=== PATIENT | male | born 1970 ===

== ENCOUNTER 2021-07-22 18:44 | Emergency (ER) | payer OTHER, SELFPAY ==
[2021-07-22 18:59] VITALS: BP 152/80; PULSE 92; RESP 20; TEMP 36.9; O2SAT 97; BMI 33.3
--- NOTE | 2021-07-22 21:25 | W.ED.BACK ---
HPI - Back Pain/Injury General: Chief Complaint: Back Pain/Injury Stated Complaint: Back Pain Time Seen by Provider: 07/22/21 21:25 History of Present Illness: A 50-year-old male patient comes in today with complaints of pain to the right lower back. Patient turned over in bed 5 days ago and felt something pull in his back and since then has had pain and discomfort with difficulty sleeping. Patient is new to the area for the last 3 weeks after moving from [place]. Patient appears in moderate pain. Patient appears nontoxic. Patient reports some difficulty getting breath as it aggravates the pain. MD elicited complaint: back pain Onset (ago): day(s) Exacerbating factors: movement Relieving factors: none Associated symptoms: Deny fever(s) Review of Systems General: Reports: 10 or more systems reviewed and unremarkable except in HPI and below Const: Denies: fever(s) Card: Denies: chest pain Resp: Reports: dyspnea Musc: Reports: back pain Physical Exam Const: COMMON NORMALS: alert HENMT: COMMON NORMALS: normocephalic HEAD & SCALP: normocephalic MOUTH: Normal oral and palatal mucosa present Neck/C-Spine: COMMON NORMALS: full ROM Chest: CHEST: Yes tenderness (Bilateral posterior chest wall pain) Resp: COMMON NORMALS: normal respiratory effort and clear to auscultation bilaterally AUSCULTATION: clear to auscultation bilaterally Cardio: COMMON NORMALS: regular rate and regular rhythm RATE: regular rate RHYTHM: regular rhythm Back/Pelvis: THORACIC SPINE/UPPER BACK: No thoracic spinal tenderness LUMBAR SPINE/LOWER BACK: No lumbar spinal tenderness, Yes paraspinal muscle tenderness and Yes straight leg raise negative bilaterally Extremity: COMMON NORMALS: normal to inspection Neuro: SENSORIUM/ORIENTATION: Yes alert Course Vital Signs: Vital signs: Vital Signs Temperature 98.4 F 07/22/21 18:59 Pulse Rate 92 07/22/21 18:59 Respiratory Rate 20 H 07/22/21 18:59 Blood Pressure 152/80 07/22/21 18:59 Pulse Oximetry 97 07/22/21 18:59 MDM - Back Pain/Injury Medical Decision Making Patient comes in today for complaints of right-sided low back pain with muscle spasms. Patient reports he has difficulty taking a deep breath due to muscle spasms. Patient is alert and oriented. On exam patient has tenderness in the right lower back in the paraspinous muscle. Lungs are clear to auscultation. Heart rates regular. Blood pressure slightly elevated at 152. Differential diagnosis includes but not limited to costochondritis, lumbar strain, intervertebral disc disease, facet arthropathy, ACS. EKG showed a sinus rhythm without any ectopy or ST elevation. Chest x-ray was unremarkable. Patient was given a dose of dexamethasone for pain and inflammation. Patient was also written a prescription for hydrocodone for 3 days to help with pain and discomfort. EKG Data EKG 1: EKG interpretation date: 07/22/21 EKG interpretation time: 22:05 Interpretation: EKG shows regular rhythm at [address] elevation or ectopy was noted. No prior exam was available for comparison. Discharge Plan Discharge Patient Disposition: Home Clinical Impression: Strain of lumbar region Qualifiers: Encounter type: initial encounter Qualified Code(s): S39.012A - Strain of muscle, fascia and tendon of lower back, initial encounter Condition: Stable Prescriptions: New ibuprofen 600 mg tablet 600 mg PO Q6H PRN (Reason: pain) Qty: 60 0RF hydrocodone-acetaminophen 5-325 mg tablet 1 tab PO Q8H PRN (Reason: pain (scale score 7-10)) Qty: 10 0RF Discharge Orders: Discharge ED (Routine); Ordered 07/22/21 Ordered By: Myron Barron Discharge Diet: Usual diet Discharge Activity: Increase activity as tolerated Patient Instructions: Back Pain (ED), Opioid Safety Activity Restrictions/Additional Instructions: Activity as tolerated. Gentle stretching and range of motion exercises. Drink plenty of water. Use acetaminophen and ibuprofen to control pain. Use hydrocodone for severe pain. Follow-up with primary care for further instruction. Return to ER for new concerns. Coding Level of Care Code ED [facility] for Chg Fwd Exam Comprehensive
--- NOTE | 2021-07-22 21:38 | XR_ITS ---
WS: [id number] Exam: XR chest 1V portable [id number] Date/Time of Exam: 07/22/2021 9:38 PM Reason For Exam: dyspnea No priors. Findings: The lungs are clear and fully expanded. Costophrenic angles are sharp. No infiltrates. Bronchovascula r relief appears normal. Cardiac silhouette is unremarkable. Bony elements are intact. XR/XR chest 1V portable [id number] IMPRESSION: Unremarkable chest radiograph.
--- NOTE | 2021-07-22 21:38 | ECG_ITS ---
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 Measurements Intervals [place] Rate: 76 P: 44 NV: 174 QRS: 26 QRSD: 94 T: 67 QT: 368 QTc: 414 Interpretive Statements SINUS RHYTHM LOW QRS VOLTAGE IN EXTREMITY LEADS [QRS DEFLECTION < 0.5 mV IN LIMB LEADS] No previous ECG available for comparison Electronically Signed On 07-22-2021 22:01:04 CDT by Lopez Bustamante M.D. [id number]
[2021-07-22] MEDS: HYDROcodone-acetaminophen 7.5-325 mg Tablet 1 TAB PO (21:52)
[2021-07-22] MEDS: dexamethasone 10 mg/mL INJ IM (21:52)
[2021-07-22 22:07] VITALS: BP 143/81; PULSE 78; RESP 18; TEMP 36.8; O2SAT 94
== END 2021-07-22 22:09 | disposition home or self-care (01) ==
PROVIDERS: Emergency Provider Nurse Practitioner Family
DX: S39.012A Strain of muscle, fascia and tendon of lower back, initial encounter (principal); X50.1XXA Overexertion from prolonged static or awkward postures, initial encounter
CPT/HCPCS: 71045; 93005; 96372; 99283; J1100

== ENCOUNTER 2021-07-23 02:52 | Emergency (ER) | payer OTHER, SELFPAY ==
[2021-07-23 02:59] VITALS: BMI 32.5
--- NOTE | 2021-07-23 03:12 | CTR_ITS ---
PROCEDURE INFORMATION: Exam: CT Abdomen And Pelvis With Contrast Exam date and time: 07/23/2021 3:45 AM Age: 50 years old Clinical indication: Abdominal pain; Generalized; Prior surgery; Surgery date: 6+ months; Surgery type: Hernia; Additional info: Abd pain TECHNIQUE: Imaging protocol: Computed tomography of the abdomen and pelvis with contrast. Radiation optimization: All CT scans at this facility use at least one of these dose optimization techniques: automated exposure control; mA and/or kV adjustment per patient size (includes targeted exams where dose is matched to clinical indication); or iterative reconstruction. Contrast material: OMNI 300; Contrast volume: 95 ml; Contrast route: INTRAVENOUS (IV); COMPARISON: CR XR chest 1V portable [id number] 07/22/2021 9:44 PM RADIATION DOSE METRICS: Total DLP (mGy-cm): 1892.9 FINDINGS: Lungs: Right discoid atelectasis and/or scarring. Liver: Normal. No mass. Gallbladder and bile ducts: Normal. No calcified stones. No ductal dilation. Pancreas: Normal. No ductal dilation. Spleen: Normal. No splenomegaly. Adrenal glands: Normal. No mass. Kidneys and ureters: Normal. No hydronephrosis. Stomach and bowel: Anastomosis in the rectum most consistent with previous partial resection. Appendix: Normal appendix. Intraperitoneal space: Unremarkable. No free air. No significant fluid collection. Vasculature: Unremarkable. No abdominal aortic aneurysm. Lymph nodes: Unremarkable. No enlarged lymph nodes. Urinary bladder: Unremarkable as visualized. Reproductive: Unremarkable as visualized. Bones/joints: Unremarkable. No acute fracture. Soft tissues: Supraumbilical anterior abdominal hernia containing large loop of transverse colon. Right paraumbilical hernia containing several loops of small bowel. 4 cm dilated loop of small bowel sticking out of the right paraumbilical hernia back into the peritoneal cavity suggesting partial obstruction from right paraumbilical herniation. Axial series 2, images 47-58. Left paraumbilical hernia containing a loop of small bowel. CT/CT abdomen pelvis w con* [id number] IMPRESSION: 1. Supraumbilical anterior abdominal hernia containing large loop of transverse colon. 2. Right paraumbilical hernia containing several loops of small bowel. 3. 4 cm dilated loop of small bowel sticking out of the right paraumbilical hernia back into the peritoneal cavity suggesting partial obstruction from right paraumbilical herniation. Axial series 2, images 47-58. 4. Left paraumbilical hernia containing a loop of small bowel.
[2021-07-23 03:13] LABS: Basophils # 0.1 10^3/uL (0.0-0.1); Basophils % 0.5 %; Eosinophils % 0.2 %; Hemoglobin 16.7 g/dL (11.7-16.6); Lymphocytes % 8.7 %; Mean Corpuscular HGB Conc 34.1 g/dL (30.0-36.0); Mean Corpuscular Hemoglobin 30.9 pg (28.0-34.0); Mean Corpuscular Volume 90.6 fl (80-94); Mean Platelet Volume 9.4 fL (7.4-10.4); Monocytes # 0.2 10^3/uL (0.2-0.9); Monocytes % 1.3 %; Neutrophils # 9.93 10^3/uL (1.8-7.7); Neutrophils % 87.7 %; Nucleated Red Blood Cells % 0 %; Platelet Count 279 10^3/cmm (130-400); Red Blood Count 5.41 10^6/uL (4.1-5.3); Red Cell Distribution Width 13.1 % (12.1-15.1); White Blood Count 11.3 10^3/uL (4.0-10.0)
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
[2021-07-23] MEDS: sodium chloride 0.9% 1,000 ML 999 ML IV (03:16)
[2021-07-23 03:17] VITALS: RESP 25
[2021-07-23] MEDS: ondansetron 2 mg/ML SDV 2 mL 4 MG IVP (03:17)
[2021-07-23] MEDS: HYDROmorphone 1 mg/mL INJ 1 mL IVP (03:17)
[2021-07-23 03:34] LABS: Alanine Aminotransferase 48 U/L (0-41); Albumin Level 4.6 g/dL (3.5-5.2); Alkaline Phosphatase 112 IU/L (40-130); Aspartate Amino Transferase 28 U/L (0-40); Blood Urea Nitrogen 14 mg/dL (6-20); Calcium 9.6 mg/dL (8.5-10.5); Carbon Dioxide 21 mmol/L (22-29); Chloride 103 mmol/L (98-107); Globulin 3.1 g/dL (1.3-4.6); Glomerular Filtration Rate 89.3 mL/min (90-130); Glucose 157 mg/dL (65-115); Lipase 6 U/L (13-60); Osmolality Calculated 290 mOsm/kg (285-295); Sodium 138 mmol/L (136-145); Total Bilirubin 0.4 mg/dL (0.15-1.2); Total Protein 7.7 g/dL (6.6-8.7)
[2021-07-23] MEDS: iohexol 300 mg/mL 100 mL Btl IV (03:44)
[2021-07-23 04:29] VITALS: RESP 24
[2021-07-23] MEDS: morphine 4 mg/mL SDV 1 mL IVP (04:29)
[2021-07-23 04:33] VITALS: BP 118/61; PULSE 100; RESP 24; O2SAT 97
--- NOTE | 2021-07-23 10:19 | DCPLANNER ---
Addendum entered by Gisel Santamaria 08/15/21 07:34: Patient had a follow up appointment with general surgery - patient did attend appointment. Addendum entered by Gisel Santamaria 07/23/21 15:46: Patient has a follow up appointment scheduled for Monday, August 02, 2021 at 10:[address] Winchester at General Surgery. Clinic will call patient with appointment information. Original Note: recruiting manager had message to schedule a follow up appointment for patient with general surgery. recruiting manager sent patients information to general surgery front staff thru [employer] task / message system. Patients information will be printed and reviewed. Clinic will call patient with appointment information. recruiting manager called phone number [phone], to inform patient that he was referred to general surgery and that the clinic will be calling patient with appointment information. recruiting manager was unable to speak with patient at this time, a voicemail was left for patient to return pillowcase sewer phone call.
== END 2021-07-23 04:58 | disposition home or self-care (01) ==
PROVIDERS: Emergency Provider Emergency Medicine
DX: K42.9 Umbilical hernia without obstruction or gangrene (principal); G89.29 Other chronic pain; M54.9 Dorsalgia, unspecified; R10.84 Generalized abdominal pain; Z79.891 Long term (current) use of opiate analgesic
CPT/HCPCS: 74177; 80053; 83690; 85025; 96361; 96374; 96375; 99284; J1170; J2270; J2405; J7030; Q9967

== ENCOUNTER 2021-08-10 13:10 | Emergency (ER) | payer OTHER, SELFPAY ==
[2021-08-10] VITALS (9 sets, daily range): BP systolic 126–150; BP diastolic 67–93; PULSE 78–95; RESP 15–20; TEMP 36.7; O2SAT 94–98; BMI 30.9
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
[2021-08-10] MEDS: morphine 4 mg/mL SDV 1 mL IVP ×2 (14:41→16:11)
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
[2021-08-10] MEDS: ondansetron 2 mg/ML SDV 2 mL 4 MG IVP (14:47)
[2021-08-10] MEDS: sodium chloride 0.9% 1,000 ML 999 ML IV (14:50)
[2021-08-10 15:16] LABS: Basophils # 0.1 10^3/uL (0.0-0.1); Basophils % 0.7 %; Eosinophils # 0.2 10^3/uL (0.0-0.8); Hematocrit 51.4 % (42.0-52.0); Hemoglobin 17.2 g/dL (11.7-16.6); Lymphocytes # 0.9 10^3/uL (0.8-4.8); Lymphocytes % 12.2 %; Mean Corpuscular HGB Conc 33.5 g/dL (30.0-36.0); Mean Corpuscular Hemoglobin 31.4 pg (28.0-34.0); Mean Corpuscular Volume 93.8 fl (80-94); Mean Platelet Volume 9.4 fL (7.4-10.4); Monocytes # 0.5 10^3/uL (0.2-0.9); Monocytes % 6.6 %; Neutrophils # 5.93 10^3/uL (1.8-7.7); Neutrophils % 77.8 %; Nucleated Red Blood Cells % 0 %; Platelet Count 313 10^3/cmm (130-400); Red Blood Count 5.48 10^6/uL (4.1-5.3); White Blood Count 7.6 10^3/uL (4.0-10.0)
[2021-08-10] MEDS: iohexol 300 mg/mL 100 mL Btl IV (15:27)
[2021-08-10 15:28] LABS: Lactate (Lactic Acid level) 1.7 mmol/L (0.5-2.2)
[2021-08-10 15:29] LABS: Alanine Aminotransferase 47 U/L (0-41); Albumin Level 4.7 g/dL (3.5-5.2); Alkaline Phosphatase 133 IU/L (40-130); Aspartate Amino Transferase 28 U/L (0-40); Blood Urea Nitrogen 8 mg/dL (6-20); Calcium 8.8 mg/dL (8.5-10.5); Carbon Dioxide 26 mmol/L (22-29); Chloride 100 mmol/L (98-107); Globulin 3.2 g/dL (1.3-4.6); Glomerular Filtration Rate 102.3 mL/min (90-130); Glucose 97 mg/dL (65-115); Lipase 5 U/L (13-60); Osmolality Calculated 280 mOsm/kg (285-295); Sodium 136 mmol/L (136-145); Total Bilirubin 0.3 mg/dL (0.15-1.2); Total Protein 7.9 g/dL (6.6-8.7)
[2021-08-10 16:19] LABS: Add Urine Microscopic? NO; Charge for UA Resulting for Rev
[2021-08-10 16:24] LABS: Bilirubin Urine Neg (Negative); Blood Urine Neg (Negative); Glucose Urine UA Norm (Normal); Ketones Urine Negative (Negative); Leukocyte Esterase Urine Negative (Negative); Nitrate Urine Negative (Negative); Protein Urine Neg (Negative); Sulfosalicylic Acid Urine Negative (Negative); Urine Appearance Clear (CLEAR); Urine Color Yellow (Yellow); Urobilinogen Urine Norm (Negative); pH Urine 8 (5-7)
[2021-08-10] MEDS: morphine 4 mg/mL SDV 1 mL 2 MG IVP (17:26)
[2021-08-10] MEDS: oxyCODONE-APAP 5-325 mg Tablet 1 TAB PO (19:28)
--- NOTE | 2021-08-10 19:29 | PC.NURSE ---
pt given percocet for home use
== END 2021-08-10 19:38 | disposition home or self-care (01) ==
PROVIDERS: Emergency Provider Emergency Medicine
DX: K43.9 Ventral hernia without obstruction or gangrene (principal)
CPT/HCPCS: 74177; 80053; 81003; 83605; 83690; 85025; 96361; 96374; 96375; 96376; 99284; J2270; J2405; J7030; Q9967

== ENCOUNTER 2021-08-12 00:15 | Emergency (ER) | payer OTHER, SELFPAY ==
[2021-08-12 00:42] VITALS: BP 118/75; PULSE 96; RESP 20; TEMP 36.8; O2SAT 98; BMI 29.9
[2021-08-12 01:29] LABS: Basophils % 0.5 %; Eosinophils # 0.2 10^3/uL (0.0-0.8); Eosinophils % 3.8 %; Hematocrit 46.2 % (42.0-52.0); Hemoglobin 15.4 g/dL (11.7-16.6); Lymphocytes # 1.4 10^3/uL (0.8-4.8); Lymphocytes % 22.2 %; Mean Corpuscular HGB Conc 33.3 g/dL (30.0-36.0); Mean Platelet Volume 9.4 fL (7.4-10.4); Monocytes # 0.5 10^3/uL (0.2-0.9); Monocytes % 8.5 %; Neutrophils # 3.95 10^3/uL (1.8-7.7); Neutrophils % 64.3 %; Nucleated Red Blood Cells % 0 %; Platelet Count 286 10^3/cmm (130-400); Red Blood Count 4.97 10^6/uL (4.1-5.3); Red Cell Distribution Width 12.8 % (12.1-15.1); White Blood Count 6.1 10^3/uL (4.0-10.0)
[2021-08-12 01:58] LABS: Alanine Aminotransferase 31 U/L (0-41); Albumin Level 3.8 g/dL (3.5-5.2); Alkaline Phosphatase 128 IU/L (40-130); Aspartate Amino Transferase 17 U/L (0-40); Blood Urea Nitrogen 14 mg/dL (6-20); Calcium 9.1 mg/dL (8.5-10.5); Carbon Dioxide 23 mmol/L (22-29); Chloride 106 mmol/L (98-107); Globulin 3.6 g/dL (1.3-4.6); Glomerular Filtration Rate 119.4 mL/min (90-130); Glucose 118 mg/dL (65-115); Lipase 6 U/L (13-60); Osmolality Calculated 290 mOsm/kg (285-295); Sodium 139 mmol/L (136-145); Total Bilirubin 0.2 mg/dL (0.15-1.2); Total Protein 7.4 g/dL (6.6-8.7)
[2021-08-12 03:04] LABS: Add Urine Microscopic? YES; Bilirubin Urine Neg (Negative); Blood Urine Trace (Negative); Glucose Urine UA Norm (Normal); Ketones Urine Negative (Negative); Leukocyte Esterase Urine Negative (Negative); Nitrate Urine Negative (Negative); Protein Urine Neg (Negative); Urine Appearance Clear (CLEAR); Urine Color Yellow (Yellow); Urobilinogen Urine Norm (Negative); pH Urine 6 (5-7)
[2021-08-12 03:08] LABS: Add Urine Culture? No; Bacteria Urine TRACE /hpf; RBC Urine 0-4 /hpf (0-2); Squamous Epithelial Cell Urine 0-4 /hpf (0-5); WBC Urine 0-4 /hpf (0-5)
--- NOTE | 2021-08-12 03:34 | W.ED.ABDPA2 ---
HPI - Abdominal Pain General: Chief Complaint: Abdominal Pain Stated Complaint: abd pain Time Seen by Provider: 08/12/21 00:16 Source: patient Mode of arrival: ambulatory Limitations: no limitations History of Present Illness: 50-year-old male has a history of multiple abdominal surgeries and chronic abdominal pain. He has been seen in the ER multiple times for his abdominal pain. He was seen here yesterday had CT scan he has appointment with surgery today. He states that tonight his pain is worsened he states is currently 6 out of 10 denies any fever no vomiting no diarrhea. Associated Symptoms: Denies chills, dysuria and fever(s) Review of Systems Const: Denies: fever(s), chills, body aches or change in appetite Eyes: Denies: blurry vision or eye discomfort ENMT: Denies: throat pain or dental pain Card: Denies: chest pain Resp: Denies: dyspnea GI: Reports: abdominal pain : Denies: dysuria Musc: Denies: neck pain or back pain Skin/Breast: Denies: rash Neuro: Denies: headache(s) Psych: Denies: depression Apolinar/Lymph: Denies: easy bruising All/Imm: Denies: urticaria PFSH ED PFSH: Medical History Hernia of abdominal wall Strain of lumbar region Family History Denies family history of Cancer Social History Smoking and tobacco status: never smoked Alcohol intake: never Physical Exam Const: COMMON NORMALS: no acute distress, patient oriented x3 and healthy appearing HENMT: COMMON NORMALS: normocephalic and atraumatic HEAD & SCALP: normocephalic and atraumatic Eye: COMMON NORMALS: Equal, round and reactive pupils present and EOMs intact bilaterally PUPIL: Yes Equal, round and reactive pupils present Neck/C-Spine: COMMON NORMALS: full ROM and supple Chest: COMMONS NORMALS: normal inspection of the chest and normal palpation of entire chest wall Resp: COMMON NORMALS: normal respiratory effort, No retractions, No use of accessory muscles and clear to auscultation bilaterally AUSCULTATION: clear to auscultation bilaterally Cardio: COMMON NORMALS: regular rate, regular rhythm and No murmurs present (Cardio) RATE: regular rate RHYTHM: regular rhythm GI: COMMON NORMALS: Soft to palpation PALPATION: Yes Soft to palpation OTHER: Multiple abdominal hernias minimal tenderness easily reduced at this time Extremity: COMMON NORMALS: normal to inspection and full ROM Neuro: COMMON NORMALS: patient oriented x3, moves all extremities and no focal motor deficits Psych: COMMON NORMALS: mental status grossly normal, Normal thought process present and cooperative THOUGHT PROCESS: Normal thought process present Skin: COMMON NORMALS: no rashes or lesions noted and no wounds GENERAL SKIN EXAM: no rashes or lesions noted Course Vital Signs: Vital signs: Vital Signs Temperature 98.2 F 08/12/21 00:42 Pulse Rate 96 08/12/21 00:42 Respiratory Rate 20 H 08/12/21 00:42 Blood Pressure 118/75 08/12/21 00:42 Pulse Oximetry 98 08/12/21 00:42 MDM - Abdominal Pain Medical Decision Making Patient presents with chronic abdominal pain abdominal exam does reveal large hernias but they are easily reduced with no signs of strangulation at this time his white count here is normal he was seen here yesterday as well he has an appointment with the surgeon in roughly 12 hours felt patient is stable for discharge at this time he is no signs of acute surgical emergency he is to follow-up as scheduled with surgery return if worsening he understands agrees to plan. Lab Data : 08/12/21 01:20 08/12/21 01:20 Labs/Radiology: Laboratory Results WBC 6.1 10^3/uL (4.0-10.0) 08/12/21 01:20 RBC 4.97 10^6/uL (4.1-5.3) 08/12/21 01:20 Hgb 15.4 g/dL (11.7-16.6) 08/12/21 01:20 Hct 46.2 % (42.0-52.0) 08/12/21 01:20 MCV 93.0 fl (80-94) 08/12/21 01:20 MCH 31.0 pg (28.0-34.0) 08/12/21 01:20 MCHC 33.3 g/dL (30.0-36.0) 08/12/21 01:20 RDW 12.8 % (12.1-15.1) 08/12/21 01:20 Plt Count 286 10^3/cmm (130-400) 08/12/21 01:20 MPV 9.4 fL (7.4-10.4) 08/12/21 01:20 Neut % (Auto) 64.3 % 08/12/21 01:20 Lymph % (Auto) 22.2 % 08/12/21 01:20 [place] % (Auto) 8.5 % 08/12/21 01:20 Eos % (Auto) 3.8 % 08/12/21 01:20 Baso % (Auto) 0.5 % 08/12/21 01:20 Neut # (Auto) 3.95 10^3/uL (1.8-7.7) 08/12/21 01:20 Lymph # (Auto) 1.4 10^3/uL (0.8-4.8) 08/12/21 01:20 [place] # (Auto) 0.5 10^3/uL (0.2-0.9) 08/12/21 01:20 Eos # (Auto) 0.2 10^3/uL (0.0-0.8) 08/12/21 01:20 Baso # (Auto) 0.0 10^3/uL (0.0-0.1) 08/12/21 01:20 Nucleated RBC % (auto) 0 % 08/12/21 01:20 Nucleated RBCs # 0.0 /100WBC 08/12/21 01:20 Sodium 139 mmol/L (136-145) 08/12/21 01:20 Potassium 4.0 mmol/L (3.5-5.1) 08/12/21 01:20 Chloride 106 mmol/L (98-107) 08/12/21 01:20 Carbon Dioxide 23 mmol/L (22-29) 08/12/21 01:20 Anion Gap 14.0 (5-19) 08/12/21 01:20 BUN 14 mg/dL (6-20) 08/12/21 01:20 Creatinine 0.7 mg/dL (0.7-1.2) 08/12/21 01:20 GFR Calculation 119.4 mL/min (90-130) 08/12/21 01:20 Glucose 118 mg/dL (65-115) H 08/12/21 01:20 Calculated Osmolality 290 mOsm/kg (285-295) 08/12/21 01:20 Calcium 9.1 mg/dL (8.5-10.5) 08/12/21 01:20 Total Bilirubin 0.2 mg/dL (0.15-1.2) 08/12/21 01:20 AST 17 U/L (0-40) 08/12/21 01:20 ALT 31 U/L (0-41) 08/12/21 01:20 Alkaline Phosphatase 128 IU/L (40-130) 08/12/21 01:20 Total Protein 7.4 g/dL (6.6-8.7) 08/12/21 01:20 Albumin 3.8 g/dL (3.5-5.2) 08/12/21 01:20 Globulin 3.6 g/dL (1.3-4.6) 08/12/21 01:20 Lipase 6 U/L (13-60) L 08/12/21 01:20 Urine Color Yellow (Yellow) 08/12/21 02:45 Urine Appearance Clear (CLEAR) 08/12/21 02:45 Urine pH 6 (5-7) 08/12/21 02:45 Ur Specific [place] 1.020 (1.005-1.030) 08/12/21 02:45 Urine Protein Neg (Negative) 08/12/21 02:45 Urine Glucose (UA) Norm (Normal) 08/12/21 02:45 Urine Ketones Negative (Negative) 08/12/21 02:45 Urine Blood Trace (Negative) H 08/12/21 02:45 Urine Nitrate Negative (Negative) 08/12/21 02:45 Urine Bilirubin Neg (Negative) 08/12/21 02:45 Urine Urobilinogen Norm mg/dL (Negative) 08/12/21 02:45 Ur Leukocyte Esterase Negative (Negative) 08/12/21 02:45 Urine RBC 0-4 /hpf (0-2) H 08/12/21 02:45 Urine WBC 0-4 /hpf (0-5) H 08/12/21 02:45 Ur Squamous Epith Cells 0-4 /hpf (0-5) H 08/12/21 02:45 Amorphous Sediment Not Reportable 08/12/21 02:45 Urine Bacteria Trace /hpf (NONE) 08/12/21 02:45 Discharge Plan Discharge Patient Disposition: Home Clinical Impression: Hernia of abdominal wall, Abdominal pain Condition: Stable Prescriptions: No Action ibuprofen 600 mg tablet 600 mg PO Q6H PRN (Reason: pain) Qty: 60 0RF hydrocodone-acetaminophen 5-325 mg tablet 1 tab PO Q8H PRN (Reason: pain (scale score 7-10)) Qty: 10 0RF Percocet 5-325 mg tablet 1 tab PO Q8H PRN (Reason: pain) Qty: 9 0RF Discharge Orders: Discharge ED (Routine); Ordered 08/12/21 Ordered By: Madhav Riojas Discharge Diet: Advance as tolerated Discharge Activity: Resume usual activity Patient Instructions: Abdominal Pain (ED) Coding Level of Care Code ED Recreational Vehicle Repairer for [place] Thomason
[2021-08-12 03:40] VITALS: RESP 20
[2021-08-12] MEDS: morphine 4 mg/mL SDV 1 mL IM (03:40)
[2021-08-12] MEDS: diphenhydrAMINE 50 mg/mL SDV 1mL IM (03:42)
[2021-08-12] MEDS: metoclopramide 5 mg/mL SDV 2 mL 10 MG IM (03:43)
== END 2021-08-12 04:18 | disposition home or self-care (01) ==
PROVIDERS: Physician Assistant; Emergency Provider Emergency Medicine
DX: K43.9 Ventral hernia without obstruction or gangrene (principal)
CPT/HCPCS: 80053; 81001; 83690; 85025; 87040; 96372; 99283; J1200; J2270; J2765

== ENCOUNTER 2021-08-14 04:58 | Emergency (ER) | payer OTHER, SELFPAY ==
[2021-08-14 05:05] VITALS: BP 118/68; PULSE 91; RESP 18; TEMP 36.6; O2SAT 93; BMI 30.9
--- NOTE | 2021-08-14 05:07 | W.ED.NAVMDI ---
HPI - Nausea/Vomiting/Diarrhea General: Chief complaint: Nausea/Vomiting/Diarrhea Stated complaint: Vomiting Time Seen by Provider: 08/14/21 05:03 Source: patient Mode of arrival: ambulatory Limitations: no limitations History of Present Illness: 50-year-old male well-known to the ER has been seen here multiple times over the last month for chronic abdominal pain has had multiple abdominal surgeries in the past with multiple hernias he states that tonight he has had nausea vomiting with some abdominal cramping denies any severe abdominal pain. He denies any worsening proving factors denies any diarrhea. Associated nausea: Yes Associated symtoms: Reports nausea; Denies chest pain, dysuria or headache(s) Review of Systems Const: Denies: fever(s), chills, body aches or change in appetite Eyes: Denies: blurry vision or eye discomfort ENMT: Denies: throat pain or dental pain Card: Denies: chest pain Resp: Denies: dyspnea GI: Reports: abdominal pain, nausea and vomiting : Denies: dysuria Musc: Denies: neck pain or back pain Skin/Breast: Denies: rash Neuro: Denies: headache(s) Psych: Denies: depression Apolinar/Lymph: Denies: easy bruising All/Imm: Denies: urticaria PFSH ED PFSH: Medical History Strain of lumbar region Surgical History History of colonoscopy 2019 History of colostomy reversal 2019 History of incisional hernia repair History of intestinal surgery 2014 Family History Denies family history of Cancer Social History Smoking and tobacco status: current every day smoker Alcohol intake: never Physical Exam Const: COMMON NORMALS: no acute distress, patient oriented x3 and healthy appearing HENMT: COMMON NORMALS: normocephalic and atraumatic HEAD & SCALP: normocephalic and atraumatic Eye: COMMON NORMALS: Equal, round and reactive pupils present and EOMs intact bilaterally PUPIL: Yes Equal, round and reactive pupils present Neck/C-Spine: COMMON NORMALS: full ROM and supple Chest: COMMONS NORMALS: normal inspection of the chest and normal palpation of entire chest wall Resp: COMMON NORMALS: normal respiratory effort, No retractions, No use of accessory muscles and clear to auscultation bilaterally AUSCULTATION: clear to auscultation bilaterally Cardio: COMMON NORMALS: regular rate, regular rhythm and No murmurs present (Cardio) RATE: regular rate RHYTHM: regular rhythm GI: COMMON NORMALS: Soft to palpation and no masses PALPATION: Yes Soft to palpation OTHER: Abdomen is nontender multiple surgical wounds and hernias that are reducible no signs of incarceration Extremity: COMMON NORMALS: normal to inspection and full ROM Neuro: COMMON NORMALS: patient oriented x3, moves all extremities and no focal motor deficits Psych: COMMON NORMALS: mental status grossly normal, Normal thought process present and cooperative THOUGHT PROCESS: Normal thought process present Skin: COMMON NORMALS: no rashes or lesions noted and no wounds GENERAL SKIN EXAM: no rashes or lesions noted Course Vital Signs: Vital signs: Vital Signs Temperature 97.8 F 08/14/21 05:05 Pulse Rate 85 08/14/21 06:06 Respiratory Rate 14 08/14/21 06:06 Blood Pressure 112/58 08/14/21 06:06 Pulse Oximetry 94 08/14/21 06:06 MDM - Nausea/Vomiting/Diarrhea Medical Decision Making Patient presents here with nausea vomiting abdominal exam here benign no signs of incarceration he feels much improved here with Reglan white counts normal he stable for discharge is to follow-up with his surgeon and return if worsening. Lab Data : 08/14/21 05:20 08/14/21 05:20 Laboratory Results WBC 7.2 10^3/uL (4.0-10.0) 08/14/21 05:20 RBC 4.91 10^6/uL (4.1-5.3) 08/14/21 05:20 Hgb 15.3 g/dL (11.7-16.6) 08/14/21 05:20 Hct 44.5 % (42.0-52.0) 08/14/21 05:20 MCV 90.6 fl (80-94) 08/14/21 05:20 MCH 31.2 pg (28.0-34.0) 08/14/21 05:20 MCHC 34.4 g/dL (30.0-36.0) 08/14/21 05:20 RDW 12.9 % (12.1-15.1) 08/14/21 05:20 Plt Count 273 10^3/cmm (130-400) 08/14/21 05:20 MPV 9.4 fL (7.4-10.4) 08/14/21 05:20 Neut % (Auto) 62.1 % 08/14/21 05:20 Lymph % (Auto) 21.1 % 08/14/21 05:20 [place] % (Auto) 11.6 % 08/14/21 05:20 Eos % (Auto) 3.8 % 08/14/21 05:20 Baso % (Auto) 0.6 % 08/14/21 05:20 Neut # (Auto) 4.46 10^3/uL (1.8-7.7) 08/14/21 05:20 Lymph # (Auto) 1.5 10^3/uL (0.8-4.8) 08/14/21 05:20 [place] # (Auto) 0.8 10^3/uL (0.2-0.9) 08/14/21 05:20 Eos # (Auto) 0.3 10^3/uL (0.0-0.8) 08/14/21 05:20 Baso # (Auto) 0.0 10^3/uL (0.0-0.1) 08/14/21 05:20 Nucleated RBC % (auto) 0 % 08/14/21 05:20 Nucleated RBCs # 0.0 /100WBC 08/14/21 05:20 Sodium Cancelled 08/14/21 05:20 Potassium Cancelled 08/14/21 05:20 Chloride Cancelled 08/14/21 05:20 Carbon Dioxide Cancelled 08/14/21 05:20 Anion Gap Cancelled 08/14/21 05:20 BUN Cancelled 08/14/21 05:20 Creatinine Cancelled 08/14/21 05:20 GFR Calculation Cancelled 08/14/21 05:20 Glucose Cancelled 08/14/21 05:20 Calculated Osmolality Cancelled 08/14/21 05:20 Calcium Cancelled 08/14/21 05:20 Total Bilirubin Cancelled 08/14/21 05:20 AST Cancelled 08/14/21 05:20 ALT Cancelled 08/14/21 05:20 Alkaline Phosphatase Cancelled 08/14/21 05:20 Total Protein Cancelled 08/14/21 05:20 Albumin Cancelled 08/14/21 05:20 Globulin Cancelled 08/14/21 05:20 Lipase Cancelled 08/14/21 05:20 Discharge Plan Discharge Patient Disposition: Home Clinical Impression: Recurrent incisional hernia, Vomiting Condition: Stable Prescriptions: New ondansetron 4 mg tablet,disintegrating 4 mg PO Q6H PRN (Reason: nausea and vomiting) Qty: 14 0RF No Action ibuprofen 600 mg tablet 600 mg PO Q6H PRN (Reason: pain) Qty: 60 0RF hydrocodone-acetaminophen 5-325 mg tablet 1 tab PO Q8H PRN (Reason: pain (scale score 7-10)) Qty: 10 0RF Percocet 5-325 mg tablet 1 tab PO Q8H PRN (Reason: pain) Qty: 9 0RF Discharge Orders: Discharge ED (Routine); Ordered 08/14/21 Ordered By: Madhav Riojas Referrals: Ranulfo Bergeron DO [Physician] - 1-3 days Discharge Diet: Advance as tolerated Discharge Activity: Resume usual activity Patient Instructions: Acute Nausea and Vomiting (ED) Coding Level of Care Code ED Media Theorist And Author Of for Chg Fwd Exam Comprehensive
[2021-08-14] MEDS: metoclopramide 5 mg/mL SDV 2 mL 10 MG IM (05:23)
[2021-08-14] MEDS: diphenhydrAMINE 50 mg/mL SDV 1mL IVP (05:23)
[2021-08-14 05:41] LABS: Basophils % 0.6 %; Eosinophils # 0.3 10^3/uL (0.0-0.8); Eosinophils % 3.8 %; Hematocrit 44.5 % (42.0-52.0); Hemoglobin 15.3 g/dL (11.7-16.6); Lymphocytes # 1.5 10^3/uL (0.8-4.8); Lymphocytes % 21.1 %; Mean Corpuscular HGB Conc 34.4 g/dL (30.0-36.0); Mean Corpuscular Hemoglobin 31.2 pg (28.0-34.0); Mean Corpuscular Volume 90.6 fl (80-94); Mean Platelet Volume 9.4 fL (7.4-10.4); Monocytes # 0.8 10^3/uL (0.2-0.9); Monocytes % 11.6 %; Neutrophils # 4.46 10^3/uL (1.8-7.7); Neutrophils % 62.1 %; Nucleated Red Blood Cells % 0 %; Platelet Count 273 10^3/cmm (130-400); Red Blood Count 4.91 10^6/uL (4.1-5.3); Red Cell Distribution Width 12.9 % (12.1-15.1); White Blood Count 7.2 10^3/uL (4.0-10.0)
[2021-08-14 06:06] VITALS: BP 112/58; PULSE 85; RESP 14; O2SAT 94
== END 2021-08-14 05:58 | disposition home or self-care (01) ==
PROVIDERS: Emergency Provider Emergency Medicine
DX: K43.2 Incisional hernia without obstruction or gangrene (principal); F17.210 Nicotine dependence, cigarettes, uncomplicated; Z79.891 Long term (current) use of opiate analgesic
CPT/HCPCS: 85025; 96372; 96374; 99283; J1200; J2765

== ENCOUNTER 2022-06-23 14:43 | Emergency (ER) | payer SELFPAY ==
[2022-06-23 14:56] VITALS: BP 144/81; PULSE 82; RESP 22; TEMP 36.1; O2SAT 93; BMI 34.3
--- NOTE | 2022-06-23 17:11 | ED_ITS ---
HPI - Back Pain/Injury General: Chief Complaint: Back Pain/Injury Stated Complaint: Back pain and leg pain Time Seen by Provider: 06/23/22 14:56 History of Present Illness: Patient is a 51-year-old male comes to the ED with back pain. Yesterday patient lifted an object and it caused pain in his lower back. Pain rated a 10 out of 10. Pain radiates down right leg. He has had this pain before and says since his back injury over a year ago he has these flareup of back pain that radiates down his right leg. Denies any bladder or bowel incontinence, pelvic anesthesia or weakness to lower extremities. Denies any other symptoms. Associated symptoms: Deny abdominal pain, chills, dysuria, fatigue, fever(s), hematuria, nausea or vomiting Review of Systems Const: Denies: fever(s), chills or fatigue Eyes: Denies: change in vision or eye discomfort ENMT: Denies: throat pain, odynophagia, nasal discharge or nasal congestion Card: Denies: chest pain, palpitations, edema, swelling of feet/ankles, dyspnea on exertion or orthopnea Resp: Denies: dyspnea, productive cough or non-productive cough GI: Denies: abdominal pain, nausea, vomiting, diarrhea, constipation or hematochezia : Denies: flank pain, difficulty urinating, dysuria or hematuria Musc: Reports: back pain; Denies: neck pain or extremity swelling Skin/Breast: Denies: rash or new lesions Neuro: Denies: headache(s), numbness in extremities or weakness in extremities [facility] ED PFSH: Medical History Strain of lumbar region Surgical History History of colonoscopy 2019 History of colostomy reversal 2019 History of incisional hernia repair History of intestinal surgery 2014 Family History Denies family history of Cancer Social History Smoking and tobacco status: current every day smoker Alcohol intake: never Physical Exam Const: COMMON NORMALS: no acute distress, patient oriented x3, healthy appearing and alert GENERAL APPEARANCE: cooperative and comfortable HENMT: COMMON NORMALS: normocephalic HEAD & SCALP: normocephalic MOUTH: Normal oral and palatal mucosa present THROAT: posterior oropharynx normal and uvula midline Neck/C-Spine: COMMON NORMALS: supple GENERAL: Yes normal visual inspection Resp: COMMON NORMALS: normal respiratory effort, No retractions, No use of accessory muscles and clear to auscultation bilaterally AUSCULTATION: clear to auscultation bilaterally Cardio: COMMON NORMALS: regular rate, regular rhythm, S1 normal heart sound present, S2 normal heart sound present, No gallops present (Cardio), No clicks present (Cardio), No murmurs present (Cardio) and Peripheral pulses 2+ throughout RATE: regular rate RHYTHM: regular rhythm HEART SOUNDS: S1 normal heart sound present and S2 normal heart sound present PERIPHERAL PULSES: Peripheral pulses 2+ throughout GI: COMMON NORMALS: Normal to inspection, nondistended, normoactive bowel sounds present, Soft to palpation, non-tender and no masses PALPATION: Yes Soft to palpation : COMMON NORMALS: Yes no CVA tenderness BLADDER/KIDNEY EXAM: Yes no CVA tenderness Back/Pelvis: COMMON NORMALS: no CVA tenderness LUMBAR SPINE/LOWER BACK: Yes paraspinal muscle tenderness Lumbar paraspinal muscle tenderness: bilateral Extremity: COMMON NORMALS: normal to inspection Neuro: COMMON NORMALS: patient oriented x3 SENSORIUM/ORIENTATION: Yes alert GAIT: Yes Normal gait present Skin: GENERAL SKIN EXAM: dry skin Course Vital Signs: Vital signs: Vital Signs Temperature 97.7 F 06/23/22 17:56 Pulse Rate 85 06/23/22 17:56 Respiratory Rate 16 06/23/22 17:56 Blood Pressure 143/91 06/23/22 17:56 Pulse Oximetry 95 06/23/22 17:56 Oxygen Delivery Me thod 06/23/22 17:56 MDM - Back Pain/Injury Medical Decision Making Patient is a 51-year-old male comes to the ED with back pain. Yesterday patient lifted an object and it caused pain in his lower back. Pain rated a 10 out of 10. Pain radiates down right leg. He has had this pain before and says since his back injury over a year ago he has these flareup of back pain that radiates down his right leg. Denies any bladder or bowel incontinence, pelvic anesthesia or weakness to lower extremities. Vitals are stable. Patient appears nontoxic in no acute distress. He sitting comfortably on exam chair. He does have some lumbar spinal muscle tenderness bilaterally but rest of exam is benign. Patient was given a dose of Toradol, Norflex and steroid here in the ED. He was diagnosed with lumbar radiculopathy and was stable for discharge home. Sent home with a prescription for NSAID, muscle relaxer and steroid. Return ED precautions given. Patient understood and agreed with plan. Discharge Plan Discharge Patient Disposition: Home Clinical Impression: Lumbar radiculopathy Condition: Stable Prescriptions: New Celebrex 100 mg capsule 100 mg PO BID PRN (Reason: pain) Qty: 20 0RF Medrol (Edgardo) 4 mg tablets,dose pack See Rx Instructions .ROUTE .COMPLEX Qty: 21 0RF Rx Instructions: orally per package directions cyclobenzaprine 10 mg tablet 10 mg PO BID PRN (Reason: muscle spasm) Qty: 20 0RF No Action valacyclovir 1 gram tablet 1,000 mg PO TID 7 Days Qty: 21 0RF hydrocodone-acetaminophen 5-325 mg tablet 1 tab PO Q8H PRN (Reason: pain (scale score 7-10)) Qty: 10 0RF Percocet 5-325 mg tablet 1 tab PO Q8H PRN (Reason: pain) Qty: 9 0RF ondansetron 4 mg tablet,disintegrating 4 mg PO Q6H PRN (Reason: nausea and vomiting) Qty: 14 0RF Discharge Orders: Discharge ED (Routine); Ordered 06/23/22 Ordered By: Alfa Rojas Discharge Diet: Regular Discharge Activity: Increase activity as tolerated Activity Restrictions/Additional Instructions: Follow-up with medical provider as directed in the next 5 to 7 days for reevaluation. Apply heat or cold pack on lower back to help with symptoms. Limit any lifting for the next week to allow for healing. Take medications as prescribed. Return to the ER or your medical provider if condition worsens. Please read and understand discharge instructions. Thank you for choosing [facility] for your healthcare needs today. Please realize this is an emergency room and that we are providing you with a medical screening exam and this may not be complete and all inclusive of all the testing and or work up that you may need to determine your ailment or severity of your illness. It is very important that you follow up as instructed or that you return to the Emergency Department should you have concerns or if your condition changes or worsens in any way. Coding Level of Care Code ED Mine Engineering Manager for [place] Thomason
[2022-06-23] MEDS: orphenadrine 30 mg/mL Inj 2 mL 60 MG IM (17:55)
[2022-06-23] MEDS: dexamethasone 10 mg/mL INJ IM (17:55)
[2022-06-23] MEDS: ketorolac 60 mg/2 mL INJ IM (17:55)
[2022-06-23 17:56] VITALS: BP 143/91; PULSE 85; RESP 16; TEMP 36.5; O2SAT 95
--- NOTE | 2022-06-27 09:48 | DCPLANNER ---
manager nursing home had message to speak with patient about getting established with a primary care physician. manager nursing home called phone number [phone] - patient stated that case planner would need to speak with his about getting a physician. Patient stated that he would have his call case planner to discuss.
== END 2022-06-23 17:53 | disposition home or self-care (01) ==
PROVIDERS: Emergency Provider Physician Assistant
DX: M54.16 Radiculopathy, lumbar region (principal)
CPT/HCPCS: 96372; 99284; J1100; J1885; J2360

== ENCOUNTER 2022-09-14 06:13 | Inpatient (IN) | payer MEDICAID, SELFPAY ==
[2022-09-14] VITALS (16 sets, daily range): BP systolic 100–175; BP diastolic 64–95; PULSE 80–96; RESP 16–36; TEMP 36.6–36.8; O2SAT 90–97; BMI 29.2
--- NOTE | 2022-09-14 06:19 | ED_ITS ---
HPI - Abdominal Pain General: Chief Complaint: Abdominal Pain Stated Complaint: abd pain Time Seen by Provider: 09/14/22 06:17 Source: patient Mode of arrival: EMS History of Present Illness: 51-year-old male with a history of multiple previous abdominal surgeries presents emergency room with complaints of abdominal discomfort and swelling. Began around 1 AM this morning. He has had similar episodes in the past. He has not had any bowel movements he has been very nauseous he vomited a couple times but not had any hematemesis. Denies fevers sweats or chills. No dysuria urgency or frequency denies chest pain. On arrival he is hyperventilating due to abdominal discomfort. MD elicited complaint: abdominal pain Onset (ago): hour(s) (04/28) Location: Diffuse Severity: severe Quality: cramping Exacerbating factors: nothing Relieving factors: nothing Associated Symptoms: Reports anorexia, bloating, GI cramping, nausea and poor appetite; Denies belching, change in bowel habits, change in stool character, chills, coffee ground emesis, constipation, diarrhea, dyspepsia, dysuria, excessive f latus, fever(s), heartburn, hematochezia, hematuria, hematemesis, fecal incontinence, loose stools, melena, syncope and vomiting Review of Systems Const: Denies: fever(s) or chills Card: Denies: chest pain or syncope Resp: Denies: dyspnea, productive cough or non-productive cough GI: Reports: abdominal pain, nausea, bloating and GI cramping; Denies: vomiting, hematemesis, coffee ground emesis, heartburn, diarrhea, constipation, belching, excessive flatus, fecal incontinence, change in bowel habits, change in stool character, hematochezia or melena : Denies: dysuria, urinary frequency, urinary urgency or hematuria Skin/Breast: Denies: rash or pruritus PFSH ED PFSH: Medical History Strain of lumbar region Surgical History History of colonoscopy 2019 History of colostomy reversal 2019 History of incisional hernia repair History of intestinal surgery 2014 Family History Denies family history of Cancer Social History Smoking and tobacco status: current every day smoker Alcohol intake: never Substance/Drug Use: never Physical Exam Const: GENERAL APPEARANCE: cooperative ORIENTATION/CONSCIOUSNESS: Yes awake, Yes oriented to person, Yes oriented to place and Yes oriented to time HENMT: COMMON NORMALS: normocephalic, atraumatic and hearing grossly normal bilaterally HEAD & SCALP: normocephalic and atraumatic Resp: COMMON NORMALS: normal respiratory effort, No retractions, No use of accessory muscles and clear to auscultation bilaterally AUSCULTATION: clear to auscultation bilaterally Cardio: COMMON NORMALS: regular rate, regular rhythm and No murmurs present (Cardio) RATE: regular rate RHYTHM: regular rhythm GI: INSPECTION: Yes abdominal distension, Yes incision, Yes central obesity and Yes scar AUSCULTATION: Yes Absent bowel sounds PALPATION: Yes Tenderness to palpation present (GI) and Yes Guarding due to palpation present (GI) PERCUSSION: tympanic to percussion Extremity: COMMON NORMALS: normal to inspection, capillary refill normal, no clubbing, cyanosis or edema, no calf tenderness and no pedal edema Neuro: SENSORIUM/ORIENTATION: Yes oriented to person, Yes oriented to place and Yes oriented to time Skin: COMMON NORMALS: no rashes or lesions noted GENERAL SKIN EXAM: no rashes or lesions noted Course Vital Signs: Vital signs: Vital Signs Temperature 98.2 F 09/14/22 06:16 Pulse Rate 82 09/14/22 08:40 Respiratory Rate 36 H 09/14/22 06:16 Blood Pressure 142/64 09/14/22 08:40 Pulse Oximetry 93 09/14/22 08:40 Oxygen Delivery Me thod Room Air 09/14/22 06:16 MDM - Abdominal Pain Medical Decision Making Multiple previous surgeries in the past he has abdominal wall hernias as well. Deke diminished bowel sounds and significant pain and abdominal distention. CT shows small bowel obstruction with definitive transition point left of the midline. He has a large and small bowel and hernia defects however per radiology the bowel obstruction is caused by tethering of adhesions outside of the hernia defect within the abdominal cavity. Place NG fluid support patient has been stable and blood pressure is adequate his lactic acid is slightly elevated. Discussed with Dr. Boswell will admit to his services orders written. Patient has received pain and nausea medication as well as fluids. Will place NG before administering any more pain medications concerned about ge tting the patient hypotensive with the narcotics. Medical Records I reviewed the patient's medical records. Lab Data I reviewed the patient's lab results. 09/14/22 06:33 09/14/22 07:23 Labs/Radiology: Radiology Impressions Abdomen/Pelvis CT 09/14/22 06:26 IMPRESSION: 1. High-grade mid small bowel obstruction with transition point adjacent to abdominal wall scarring in the left paramidline infraumbilical region. 2. Multifocal large complex ventral hernia containing nonobstructed small bowel, colon, and mesenteric fat. The bowel obstruction described above is adjacent (inferior) to the hernia sites. There is no obstruction within the hernias. 3. Incidental findings above. ADDENDUM: 09/14/22 0913 THIS REPORT CONTAINS FINDINGS THAT MAY BE CRITICAL TO PATIENT CARE. The findings were verbally communicated via telephone conference with SPENCER NEGRETE at 9:12 AM ALEJANDRO on 09/14/2022. The findings were acknowledged and understood. Laboratory Results WBC 13.6 10^3/uL (4.0-10.0) H 09/14/22 06:33 RBC 6.18 10^6/uL (4.1-5.3) H 09/14/22 06:33 Hgb 19.1 g/dL (11.7-16.6) H 09/14/22 06:33 Hct 57.6 % (42.0-52.0) H 09/14/22 06:33 MCV 93.2 fl (80-94) 09/14/22 06:33 MCH 30.9 pg (28.0-34.0) 09/14/22 06:33 MCHC 33.2 g/dL (30.0-36.0) 09/14/22 06:33 RDW 12.9 % (12.1-15.1) 09/14/22 06:33 Plt Count 132 10^3/cmm (130-400) 09/14/22 06:33 MPV 10.6 fL (7.4-10.4) H 09/14/22 06:33 Neut % (Auto) 83.0 % 09/14/22 06:33 Lymph % (Auto) 12.0 % 09/14/22 06:33 [place] % (Auto) 3.5 % 09/14/22 06:33 Eos % (Auto) 0.4 % 09/14/22 06:33 Baso % (Auto) 0.4 % 09/14/22 06:33 Neut # (Auto) 11.26 10^3/uL (1.8-7.7) H 09/14/22 06:33 Lymph # (Auto) 1.6 10^3/uL (0.8-4.8) 09/14/22 06:33 [place] # (Auto) 0.5 10^3/uL (0.2-0.9) 09/14/22 06:33 Eos # (Auto) 0.1 10^3/uL (0.0-0.8) 09/14/22 06:33 Baso # (Auto) 0.1 10^3/uL (0.0-0.1) 09/14/22 06:33 Nucleated RBC % (auto) 0 % 09/14/22 06:33 Nucleated RBCs # 0.0 /100WBC 09/14/22 06:33 Sodium 139 mmol/L (136-145) 09/14/22 07:23 Potassium 4.2 mmol/L (3.5-5.1) 09/14/22 07:23 Chloride 104 mmol/L (98-107) 09/14/22 07:23 Carbon Dioxide 22 mmol/L (22-29) 09/14/22 07:23 Anion Gap 17.2 (5-19) 09/14/22 07:23 BUN 6 mg/dL (6-20) 09/14/22 07:23 Creatinine 0.7 mg/dL (0.7-1.2) 09/14/22 07:23 GFR Calculation 118.9 mL/min (90-130) 09/14/22 07:23 Glucose 123 mg/dL (65-115) H 09/14/22 07:23 Calculated Osmolality 287 mOsm/kg (285-295) 09/14/22 07:23 Lactic Acid 3.0 mmol/L (0.5-2.2) H 09/14/22 06:58 Calcium 9.0 mg/dL (8.5-10.5) 09/14/22 07: Total Bilirubin 0.3 mg/dL (0.15-1.2) 09/14/22 07: AST 30 U/L (0-40) 09/14/22 07: ALT 49 U/L (0-41) H 09/14/22 07:23 Alkaline Phosphatase 134 U/L (40-130) H 09/14/22 07:23 Troponin T Baseline 6 ng/L (0-15) 09/14/22 07: Total Protein 7.3 g/dL (6.6-8.7) 09/14/22 07: Albumin 4.0 g/dL (3.5-5.2) 09/14/22 07: Globulin 3.3 g/dL (1.3-4.6) 09/14/22 07: Lipase 6 U/L (13-60) L 09/14/22 07:23 Urine Color Yellow (Yellow) 09/14/22 08:17 Urine Appearance Clear (CLEAR) 09/14/22 08:17 Urine pH 9 (5-7) H 09/14/22 08:17 Ur Specific [place] 1.015 (1.005-1.030) 09/14/22 08:17 Urine Protein Neg (Negative) 09/14/22 08:17 Urine Glucose (UA) Norm (Normal) 09/14/22 08:17 Urine Ketones Negative (Negative) 09/14/22 08:17 Urine Blood Neg (Negative) 09/14/22 08:17 Urine Nitrate Negative (Negative) 09/14/22 08:17 Urine Bilirubin Neg (Negative) 09/14/22 08:17 Prot Sulfosalicylic Acd Negative (Negative) 09/14/22 08:17 Urine Urobilinogen Norm mg/dL (Negative) 09/14/22 08:17 Ur Leukocyte Esterase Negative (Negative) 09/14/22 08:17 Discharge Plan Discharge Patient Disposition: Admitted As Inpatient Clinical Impression: Small bowel obstruction, Hernia of abdominal wall, Recurrent incisional hernia Condition: Stable Prescriptions: No Action valacyclovir 1 gram tablet 1,000 mg PO TID 7 Days Qty: 21 0RF hydrocodone-acetaminophen 5-325 mg tablet 1 tab PO Q8H PRN (Reason: pain (scale score 7-10)) Qty: 10 0RF Percocet 5-325 mg tablet 1 tab PO Q8H PRN (Reason: pain) Qty: 9 0RF ondansetron 4 mg tablet,disintegrating 4 mg PO Q6H PRN (Reason: nausea and vomiting) Qty: 14 0RF Celebrex 100 mg capsule 100 mg PO BID PRN (Reason: pain) Qty: 20 0RF Medrol (Edgardo) 4 mg tablets,dose pack See Rx Instructions .ROUTE .COMPLEX Qty: 21 0RF Rx Instructions: orally per package directions cyclobenzaprine 10 mg tablet 10 mg PO BID PRN (Reason: muscle spasm) Qty: 20 0RF Referrals: Ranulfo Bergeron DO [Primary Care Provider] - Coding Level of Care Code ED Donor Recruitment Manager for [place] Thomason
--- NOTE | 2022-09-14 06:26 | CTR_ITS ---
PROCEDURE INFORMATION: Exam: CT Abdomen And Pelvis Without Contrast Exam date and time: 09/14/2022 7:01 AM Age: 51 years old Clinical indication: Abdominal pain; Generalized; Prior surgery; Surgery date: 6+ months; Surgery type: Hernia , colon TECHNIQUE: Imaging protocol: Computed tomography of the abdomen and pelvis without contrast. Radiation optimization: All CT scans at this facility use at least one of these dose optimization techniques: automated exposure control; mA and/or kV adjustment per patient size (includes targeted exams where dose is matched to clinical indication); or iterative reconstruction. REPORTING DATA: Count of CT and Cardiac NM exams in prior 12 months: This patient has received 0 known CTs and 0 known cardiac nuclear medicine studies in the 12 months prior to the current study. COMPARISON: CT abdomen pelvis w con* [id number] 08/10/2021 3:26 PM RADIATION DOSE METRICS: Total DLP (mGy-cm): 1179.73 FINDINGS: Lungs: There is subsegmental atelectasis in the lung bases. Diaphragm: There is a small sliding-type hiatal hernia. Liver: There are geographic areas of relative high attenuation adjacent to the gallbladder fossa. Overall, liver density is slightly less than spleen. The finding is similar to 08/10/2021 by faintly visible on the prior exam due to the presence of contrast. This finding is consistent with mild diffuse hepatic steatosis and focal sparing adjacent to the gallbladder fossa. There is no liver mass or cyst. Gallbladder and bile ducts: The gallbladder is normal. There is no biliary dilation. Pancreas: There is marked atrophy of the pancreas. Spleen: The spleen is unremarkable. Adrenal glands: The adrenal glands are unremarkable. Kidneys and ureters: The kidneys are unremarkable. No hydronephrosis or stones. No ureteral dilation. Stomach and bowel: The stomach is decompressed, preventing meaningful evaluation of wall thickness. Proximal small bowel is normal. There is a long segment of nondilated mid small bowel within a ventral hernia. There is progressive distension of small bowel distally within the hernia. There is dilated fluid and gas filled small bowel exiting the hernia and extending over a long segment of intra-abdominal small bowel to an abrupt transition point in the left paramidline infraumbilical region visible on axial series 4, image 63, coronal series 6, image 13, and sagittal series 7 image 42 through 32. The distal ileum is decompressed. The site of obstruction lies adjacent to scarring in the abdominal wall at the level of the umbilicus. The colon is nondilated. There is mild pancolonic diverticulosis. There is an unremarkable sigmoid anastomosis. No sign of colonic inflammation or obstruction. Appendix: The appendix is normal. Intraperitoneal space: There is no free air or significant intraperitoneal free fluid. Vasculature: The aorta is unremarkable. There is no aneurysm. Lymph nodes: There is no lymphadenopathy in the retroperitoneum, mesentery, pelvis or inguinal regions. Urinary bladder: The urinary bladder is unremarkable. Reproductive: The prostate and seminal vesicles are unremarkable. Bones/joints: Bones are unremarkable. Soft tissues: There is a small fat containing left inguinal hernia. There is focal scarring of the abdominal wall at the level of the umbilicus. There is a complex multifocal large supraumbilical ventral hernia with locules of isolated herniated fat, and long segments of nondilated colon and small bowel within large hernias. CT/CT abdomen pelvis wo con [id number] IMPRESSION: 1. High-grade mid small bowel obstruction with transition point adjacent to abdominal wall scarring in the left paramidline infraumbilical region. 2. Multifocal large complex ventral hernia containing nonobstructed small bowel, colon, and mesenteric fat. The bowel obstruction described above is adjacent (inferior) to the hernia sites. There is no obstruction within the hernias. 3. Incidental findings above.
[2022-09-14] MEDS: sodium chloride 0.9% 1,000 ML 999 ML IV ×3 (06:40→12:53)
[2022-09-14] MEDS: morphine 4 mg/mL SDV 1 mL IVP ×2 (06:41→08:04)
[2022-09-14 06:57] LABS: Basophils # 0.1 10^3/uL (0.0-0.1); Basophils % 0.4 %; Eosinophils # 0.1 10^3/uL (0.0-0.8); Eosinophils % 0.4 %; Hematocrit 57.6 % (42.0-52.0); Hemoglobin 19.1 g/dL (11.7-16.6); Lymphocytes # 1.6 10^3/uL (0.8-4.8); Mean Corpuscular HGB Conc 33.2 g/dL (30.0-36.0); Mean Corpuscular Hemoglobin 30.9 pg (28.0-34.0); Mean Corpuscular Volume 93.2 fl (80-94); Mean Platelet Volume 10.6 fL (7.4-10.4); Monocytes # 0.5 10^3/uL (0.2-0.9); Monocytes % 3.5 %; Neutrophils # 11.26 10^3/uL (1.8-7.7); Nucleated Red Blood Cells % 0 %; Platelet Count 132 10^3/cmm (130-400); Red Blood Count 6.18 10^6/uL (4.1-5.3); Red Cell Distribution Width 12.9 % (12.1-15.1); White Blood Count 13.6 10^3/uL (4.0-10.0)
[2022-09-14 08:17] LABS: Alkaline Phosphatase 134 U/L (40-130); Blood Urea Nitrogen 6 mg/dL (6-20); Carbon Dioxide 22 mmol/L (22-29); Chloride 104 mmol/L (98-107); Globulin 3.3 g/dL (1.3-4.6); Glomerular Filtration Rate 118.9 mL/min (90-130); Glucose 123 mg/dL (65-115); Lipase 6 U/L (13-60); Osmolality Calculated 287 mOsm/kg (285-295); Sodium 139 mmol/L (136-145); Total Bilirubin 0.3 mg/dL (0.15-1.2); Total Protein 7.3 g/dL (6.6-8.7); Troponin(5th) Baseline 6 ng/L (0-15)
--- NOTE | 2022-09-14 08:18 | ECG_ITS ---
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 Measurements Intervals [place] Rate: 82 P: 62 FL: 165 QRS: 104 QRSD: 93 T: 76 QT: 368 QTc: 431 Interpretive Statements SINUS RHYTHM INDETERMINATE AXIS Compared to ECG 07/22/2021 22:00:06 Indeterminate axis now present Electronically Signed On 09-14-2022 12:36:19 CDT by Lopez Bustamante M.D. [email or web address] ([email or web address]) montgomery va medical centerSpark The Firecleveland clinic akron generalCanburg/store/Om/[id number]
[2022-09-14 08:20] LABS: Alanine Aminotransferase 49 U/L (0-41); Anion Gap 17.2 (5-19); Aspartate Amino Transferase 30 U/L (0-40); Potassium 4.2 mmol/L (3.5-5.1)
[2022-09-14 08:23] LABS: Add Urine Microscopic? NO; Charge for UA Resulting for Rev
[2022-09-14 08:26] LABS: Bilirubin Urine Neg (Negative); Blood Urine Neg (Negative); Glucose Urine UA Norm (Normal); Ketones Urine Negative (Negative); Leukocyte Esterase Urine Negative (Negative); Nitrate Urine Negative (Negative); Protein Urine Neg (Negative); Specific Gravity, Urine 1.015 (1.005-1.030); Sulfosalicylic Acid Urine Negative (Negative); Urine Appearance Clear (CLEAR); Urine Color Yellow (Yellow); Urobilinogen Urine Norm (Negative); pH Urine 9 (5-7)
[2022-09-14] MEDS: pantoprazole 40 mg SDV IVP (08:52)
[2022-09-14 08:53] LABS: Reflex Lactate Order REFLEX LACTIC ORDERD
[2022-09-14] MEDS: LORazepam 2 mg/mL INJ 1 mL IVP ×2 (09:21→13:38)
[2022-09-14] MEDS: cetacaine Spray 5 gm Can 1 SPRAY TOPICAL (09:36)
--- NOTE | 2022-09-14 09:49 | XRR_ITS ---
PROCEDURE INFORMATION: Exam: XR Chest Exam date and time: 09/14/2022 9:52 AM Age: 51 years old Clinical indication: Device placement; Ng tube; Additional info: Ng tube placement TECHNIQUE: Imaging protocol: Radiologic exam of the chest. Views: 1 view. COMPARISON: CR XR chest 1V portable [id number] 07/22/2021 9:44 PM FINDINGS: Tubes, catheters and devices: The nasogastric tube is appropriately positioned with the tip in the stomach, well beyond the diaphragmatic hiatus. Lungs: There is no consolidation. Pleural spaces: There is no pleural effusion or pneumothorax. Heart/Mediastinum: The cardiac silhouette is within normal limits of size given AP technique. Bones/joints: Bones are unremarkable. XR/XR chest 1V portable [id number] IMPRESSION: Satisfactory NG tube position.
[2022-09-14 10:39] LABS: Troponin 5 2HR Delta 0 ABS# (0-10)
[2022-09-14 10:40] LABS: Lactic Acid level (Lactate) 3.2 mmol/L (0.5-2.2)
--- NOTE | 2022-09-14 12:15 | ECG_ITS ---
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 Measurements Intervals [place] Rate: 80 P: 56 ID: 160 QRS: -31 QRSD: 94 T: 89 QT: 368 QTc: 425 Interpretive Statements SINUS RHYTHM INDETERMINATE AXIS LOW QRS VOLTAGE IN PRECORDIAL LEADS [QRS DEFLECTION < 1.0 mV IN CHEST LEADS] POSSIBLE ANTERIOR MYOCARDIAL INFARCTION , PROBABLY OLD [30 ms Q WAVE IN V3/V4, OR R < 0.2 mV IN V4] Compared to ECG 09/14/2022 06:19:28 Low QRS voltage now present Myocardial infarct finding now present Electronically Signed On 09-14-2022 12:36:06 CDT by Lopez Bustamante M.D. [email or web address] OilTwillionbaraga county memorial hospital.[employer]/store/OM/[id number]
[2022-09-14] MEDS: phenol oral Spray 177 mL 3 SPRAY MUCOUS MEM (13:37)
[2022-09-14] MEDS: ondansetron 2 mg/ML SDV 2 mL 4 MG IVP (13:38)
[2022-09-14] MEDS: HYDROmorphone 1 mg/mL INJ 1 mL IVP ×3 (13:38→23:13)
[2022-09-14 14:01] LABS: Troponin 5 6HR Delta 0 ng/L (0-12)
[2022-09-15] VITALS (10 sets, daily range): BP systolic 134–144; BP diastolic 76–86; PULSE 68–83; RESP 16–20; TEMP 36.6–36.7; O2SAT 91–93
[2022-09-15] MEDS: D5-NS 0.45% + KCL 20 mEq 20 MEQ/1,000 ML BAG 150 MEQ IV ×3 (01:30→19:33)
[2022-09-15] MEDS: HYDROmorphone 1 mg/mL INJ 1 mL IVP ×5 (03:05→20:25)
--- NOTE | 2022-09-15 06:13 | PC.NURSE ---
NG OUTPUT NG output is clear to pink. Has been using Chloraseptic spray which is causing the pink discoloring. NG to LIS with little output this shift. Denies any nausea and is c/o he is really hungry and is wanting to eat this morning. Remains NPO and is aware of reasoning not to eat anything. Has received IV Dilaudid tonight for abd pain and c/o NG being quite painful to his throat. Abd is distended but according to it is softer than when he came to the hospital. Did not hear any bowel sounds and has c/o tenderness generalized. IV fluids infusing at 150ml/hr rate.
--- NOTE | 2022-09-15 13:30 | PM.HP ---
Providers/Chief Complaint Admitting Physician: Morris Boswell DO Primary Care Provider: Ranulfo Bergeron DO Chief Complaint: abd pain History of Present Illness Yasir Hassan is a 51 year old male with recurrent incisional hernias who presented to the hospital with 1 day history of abdominal pain nausea and vomiting. He reports that he is passing a minimal amount of flatus. He denies any hematemesis. He has diffuse abdominal pain. Palpation makes pain worse. Nothing makes pain better. CT the abdomen pelvis shows small bowel obstruction with possible transition point inside the abdomen and not in one of the hernias. Review of Systems General: Reports: 10 or more systems reviewed and unremarkable except in HPI and below Medications/Allergies Home Medications Medication Instructions Recorded Confirmed Last Taken Type No Known Home Medications 09/14/22 09/14/22 Unknown History Allergies Allergy/AdvReac Type Severity Reaction Status Date / Time No Known Drug Allergies Allergy Unknown Verified 09/14/22 06:15 PFSH Acute PFSH: Medical History Strain of lumbar region Surgical History History of colonoscopy 2019 History of colostomy reversal 2019 History of incisional hernia repair History of intestinal surgery 2014 Family History Denies family history of Cancer Social History Smoking and tobacco status: current every day smoker Alcohol intake: never Substance/Drug Use: never Vitals/I&O/Wt Last Vital Signs Temp 98.0 F 09/15/22 11:00 Pulse 75 09/15/22 11:00 Resp 19 H 09/15/22 11:40 BP 137/86 09/15/22 11:00 Pulse Ox 93 09/15/22 11:40 O2 Del Method Room Air 09/15/22 11:00 09/14/22 09/15/22 09/15/22 22:59 06:59 14:59 Intake Total 1000 / 1000 Output Total 100 / 100 Balance -100 / 1900 1000 / 1000 Weight last 48 hrs Weight 170 lb Physical Exam Narrative: General : Patient is well developed , no acute distress, oriented x3 Head : Normal cephalic, a-traumatic. Ears : Pinnae and external canal are normal. Hearing is normal. Eyes : PERRLA, Sclera and injection are normal. No conjunctival discharge. Nose : Mucous membranes are without erythema. Throat : buccal mucosa is normal, gums are without significant recession or hypertrophy. Lungs : Equal chest rise bilaterally, no use of accessory muscles, trachea is midline. Cor : Rate and rhythm are normal. Abdomen : Soft, distended, diffusely tender to palpation, no g/r, 2 large reducible recurrent incisional hernias Extremities : No edema, no cyanosis or clubbing, dorsalis pedis pulses are present bilaterally, non-tender to palpation of calves. Upper extremities are normal bilaterally. Back : non-tender to palpation, no CVA tenderness. Neuro : CN II - XII intact, Upper and lower extremities have equal and full strength Data 09/16/22 15:55 09/15/22 14:12 A&P Assessment and plan (1) Small bowel obstruction: (2) Recurrent incisional hernia: Plan IV fluids N.p.o. NGT to LIWS Daily labs Await return of bowel function Conservative management for now. If he does not have return of bowel function the next few days left to consider exploratory laparotomy Attestations Medical Necessity Statement*: Patient will require at least 2 nights of hospital care to treat his small bowel obstruction Coding Level of Care Code Acute Code for Chg Fwd Diagnoses Small bowel obstruction K56.609 Recurrent incisional hernia K43.2
[2022-09-15] MEDS: LORazepam 2 mg/mL INJ 1 mL 1 MG IVP ×2 (14:10→23:07)
[2022-09-15 14:22] LABS: Basophils % 0.3 %; Eosinophils # 0.1 10^3/uL (0.0-0.8); Eosinophils % 1.1 %; Hemoglobin 15.4 g/dL (11.7-16.6); Lymphocytes # 0.9 10^3/uL (0.8-4.8); Lymphocytes % 9.1 %; Mean Corpuscular HGB Conc 33.5 g/dL (30.0-36.0); Mean Corpuscular Hemoglobin 30.9 pg (28.0-34.0); Mean Corpuscular Volume 92.2 fl (80-94); Mean Platelet Volume 9.4 fL (7.4-10.4); Monocytes # 0.7 10^3/uL (0.2-0.9); Monocytes % 6.9 %; Neutrophils # 8.44 10^3/uL (1.8-7.7); Neutrophils % 82.3 %; Nucleated Red Blood Cells % 0 %; Platelet Count 234 10^3/cmm (130-400); Red Blood Count 4.99 10^6/uL (4.1-5.3); Red Cell Distribution Width 12.9 % (12.1-15.1); White Blood Count 10.3 10^3/uL (4.0-10.0)
[2022-09-15 14:39] LABS: Anion Gap 14.1 (5-19); Blood Urea Nitrogen 7 mg/dL (6-20); Calcium 8.6 mg/dL (8.5-10.5); Carbon Dioxide 23 mmol/L (22-29); Chloride 100 mmol/L (98-107); Glucose 100 mg/dL (65-115); Lactate (Lactic Acid level) 1.5 mmol/L (0.5-2.2); Osmolality Calculated 274 mOsm/kg (285-295); Potassium 4.1 mmol/L (3.5-5.1); Sodium 133 mmol/L (136-145)
[2022-09-16] VITALS (11 sets, daily range): BP systolic 122–148; BP diastolic 69–81; PULSE 77–98; RESP 16–20; TEMP 36.6–37; O2SAT 90–94
[2022-09-16] MEDS: HYDROmorphone 1 mg/mL INJ 1 mL IVP ×5 (02:21→20:03)
[2022-09-16] MEDS: D5-NS 0.45% + KCL 20 mEq 20 MEQ/1,000 ML BAG 150 MEQ IV ×3 (02:50→17:07)
[2022-09-16] MEDS: LORazepam 2 mg/mL INJ 1 mL 1 MG IVP ×2 (07:51→17:05)
[2022-09-16 16:04] LABS: Basophils % 0.3 %; Eosinophils # 0.2 10^3/uL (0.0-0.8); Eosinophils % 1.6 %; Hemoglobin 15.7 g/dL (11.7-16.6); Lymphocytes % 8.7 %; Mean Corpuscular HGB Conc 34.1 g/dL (30.0-36.0); Mean Corpuscular Hemoglobin 30.9 pg (28.0-34.0); Mean Corpuscular Volume 90.6 fl (80-94); Mean Platelet Volume 9.2 fL (7.4-10.4); Monocytes # 0.8 10^3/uL (0.2-0.9); Monocytes % 7.6 %; Neutrophils % 81.4 %; Nucleated Red Blood Cells % 0 %; Platelet Count 212 10^3/cmm (130-400); Red Blood Count 5.08 10^6/uL (4.1-5.3); Red Cell Distribution Width 12.6 % (12.1-15.1); White Blood Count 10.9 10^3/uL (4.0-10.0)
--- NOTE | 2022-09-16 16:32 | PC.NURSE ---
Sent message to Dr. Boswell patient requested a Nicotine patch and patient getting chocked on water. Keeping patient NPO until Speech eval and treat. No response at this time from Dr. Boswell.
--- NOTE | 2022-09-16 19:11 | PM.PN ---
Subjective Subjective: Patient seen and examined. He reports that he is passing significantly more flatus now and is not nauseous. Vitals/I&O/Wt Last Vital Signs Temp 98.5 F 09/16/22 16:00 Pulse 86 09/16/22 16:00 Resp 19 H 09/16/22 16:00 BP 148/81 09/16/22 16:00 Pulse Ox 90 09/16/22 16:00 O2 Del Method Room Air 09/15/22 15:00 09/16/22 09/16/22 09/16/22 06:59 14:59 22:59 Intake Total 1000 / 3000 1000 / 1000 967.5 / 1966.5 Output Total 150 / 150 Balance 850 / 2850 1000 / 1000 967.5 / 1966. Physical Exam Narrative: General: No acute distress, awake alert and oriented x3 Abdomen: Soft, distended, mild diffuse tenderness to palpation, reducible incisional hernias, no guarding or rebound Data 09/16/22 15:55 09/15/22 14:12 A&P Assessment and plan (1) Small bowel obstruction: (2) Recurrent incisional hernia: Plan DC NGT Clear liquid diet Daily labs Ambulate Conservative management for now Attestations Medical Necessity Statement*: Patient requires at least 1 more night in the hospital or treatment of a small bowel obstruction until return of bowel function Coding Level of Care Code Acute Code for Chg Fwd Diagnoses Small bowel obstruction K56.609 Recurrent incisional hernia K43.2
--- NOTE | 2022-09-16 20:24 | PC.NURSE ---
Patient chocked on water x2 after NG tube removal. This nurse notified Dr. Boswell. Patient will be NPO until speech can do an eval and treat.
[2022-09-17] VITALS (7 sets, daily range): BP systolic 100–134; BP diastolic 57–77; PULSE 73–105; RESP 15–20; TEMP 36.4–37; O2SAT 90–99
[2022-09-17] MEDS: HYDROmorphone 1 mg/mL INJ 1 mL IVP (00:33)
[2022-09-17] MEDS: LORazepam 2 mg/mL INJ 1 mL 1 MG IVP (03:18)
[2022-09-17] MEDS: D5-NS 0.45% + KCL 20 mEq 20 MEQ/1,000 ML BAG 150 MEQ IV ×3 (03:18→11:49)
[2022-09-17 05:04] LABS: Basophils % 0.5 %; Eosinophils # 0.2 10^3/uL (0.0-0.8); Eosinophils % 3.1 %; Hematocrit 44.5 % (42.0-52.0); Hemoglobin 14.9 g/dL (11.7-16.6); Lymphocytes # 1.4 10^3/uL (0.8-4.8); Lymphocytes % 19.5 %; Mean Corpuscular HGB Conc 33.5 g/dL (30.0-36.0); Mean Corpuscular Hemoglobin 30.2 pg (28.0-34.0); Mean Corpuscular Volume 90.3 fl (80-94); Mean Platelet Volume 9.4 fL (7.4-10.4); Monocytes # 0.9 10^3/uL (0.2-0.9); Monocytes % 12.3 %; Neutrophils # 4.68 10^3/uL (1.8-7.7); Neutrophils % 63.9 %; Nucleated Red Blood Cells % 0 %; Platelet Count 254 10^3/cmm (130-400); Red Blood Count 4.93 10^6/uL (4.1-5.3); Red Cell Distribution Width 12.7 % (12.1-15.1); White Blood Count 7.3 10^3/uL (4.0-10.0)
[2022-09-17 05:25] LABS: Anion Gap 14.7 (5-19); Blood Urea Nitrogen 8 mg/dL (6-20); Calcium 8.8 mg/dL (8.5-10.5); Carbon Dioxide 25 mmol/L (22-29); Chloride 100 mmol/L (98-107); Glomerular Filtration Rate 118.9 mL/min (90-130); Glucose 97 mg/dL (65-115); Magnesium 1.9 mg/dL (1.7-2.3); Osmolality Calculated 280 mOsm/kg (285-295); Potassium 3.7 mmol/L (3.5-5.1); Sodium 136 mmol/L (136-145)
--- NOTE | 2022-09-17 11:24 | PC.NURSE ---
Patient requesting pain medication multiple times, each time this nurse has went into patients room to access pain patient is resting in bed with eyes closed snoring. Will monitor pain.
[2022-09-17] MEDS: HYDROcodone-acetaminophen 7.5-325 mg Tablet 1 TAB PO (12:05)
--- NOTE | 2022-09-17 17:34 | P.DS_ITS ---
Discharge Providers Date of Admission: 09/14/22 09:14 Date of Discharge: September 17, 2022 Attending Provider at Admission: Morris Boswell DO Attending Provider at Discharge: Morris Boswell DO Primary Care Provider: Ranulfo Bergeron DO Diagnoses at Discharge Discharge Diagnosis (1) Small bowel obstruction: Status: Acute (2) Recurrent incisional hernia: Status: Acute Reason for Visit Reason for Visit: abd pain Hospital Course Hospital Course Reported 51-year-old gentleman who presents to the hospital with a partial small bowel obstruction. He has 2 large recurrent incisional hernias in his abdomen. He did well with conservative management and was having a bowel movement and tolerating soft diet on discharge. Physical Exam Narrative: General : Patient is well developed , no acute distress, oriented x3 Head : Normal cephalic, a-traumatic. Ears : Pinnae and external canal are normal. Hearing is normal. Eyes : PERRLA, Sclera and injection are normal. No conjunctival discharge. Nose : Mucous membranes are without erythema. Throat : buccal mucosa is normal, gums are without significant recession or hypertrophy. Lungs : Equal chest rise bilaterally, no use of accessory muscles, trachea is midline. Cor : Rate and rhythm are normal. Abdomen : Soft, ND, NT, no g/r/ large reducible recurrent incisional hernias Extremities : No edema, no cyanosis or clubbing, dorsalis pedis pulses are present bilaterally, non-tender to palpation of calves. Upper extremities are normal bilaterally. Back : non-tender to palpation, no CVA tenderness. Neuro : CN II - XII intact, Upper and lower extremities have equal and full strength Discharge Data Studies Completed and Pending Completed Studies During Hospitalization Category Date Time Status CT abdomen pelvis wo con [id number] Stat Cat Scan 09/14/22 06:26 Completed CXRP [XR chest 1V portable [id number]] Stat Exams 09/14/22 09:49 Completed Pending at discharge Category Date Time Status BMP [Basic Metabolic Panel] AM LABS Lab 09/18/22 04:00 Ordered BMP [Basic Metabolic Panel] AM LABS Lab 09/19/22 04:00 Ordered CBC Auto Diff [Complete Blood Count w/Auto] AM LABS Lab 09/18/22 04:00 Ordered CBC Auto Diff [Complete Blood Count w/Auto] AM LABS Lab 09/19/22 04:00 Ordered Magnesium AM LABS Lab 09/18/22 04:00 Ordered Magnesium AM LABS Lab 09/19/22 04:00 Ordered Radiology Impressions Abdomen/Pelvis CT 09/14/22 06:26 IMPRESSION: 1. High-grade mid small bowel obstruction with transition point adjacent to abdominal wall scarring in the left paramidline infraumbilical region. 2. Multifocal large complex ventral hernia containing nonobstructed small bowel, colon, and mesenteric fat. The bowel obstruction described above is adjacent (inferior) to the hernia sites. There is no obstruction within the hernias. 3. Incidental findings above. ADDENDUM: 09/14/22 0913 THIS REPORT CONTAINS FINDINGS THAT MAY BE CRITICAL TO PATIENT CARE. The findings were verbally communicated via telephone conference with SIOMARA STYLES at 9:12 AM CDT on 09/14/2022. The findings were acknowledged and understood. Chest X-Ray 09/14/22 09:49 IMPRESSION: Satisfactory NG tube position. Laboratory Results WBC 7.3 10^3/uL (4.0-10.0) 09/17/22 04:42 RBC 4.93 10^6/uL (4.1-5.3) 09/17/22 04:42 Hgb 14.9 g/dL (11.7-16.6) 09/17/22 04:42 Hct 44.5 % (42.0-52.0) 09/17/22 04:42 MCV 90.3 fl (80-94) 09/17/22 04:42 MCH 30.2 pg (28.0-34.0) 09/17/22 04:42 MCHC 33.5 g/dL (30.0-36.0) 09/17/22 04:42 RDW 12.7 % (12.1-15.1) 09/17/22 04:42 Plt Count 254 10^3/cmm (130-400) 09/17/22 04:42 MPV 9.4 fL (7.4-10.4) 09/17/22 04:42 Neut % (Auto) 63.9 % 09/17/22 04:42 Lymph % (Auto) 19.5 % 09/17/22 04:42 [facility] % (Auto) 12.3 % 09/17/22 04:42 Eos % (Auto) 3.1 % 09/17/22 04:42 Baso % (Auto) 0.5 % 09/17/22 04:42 Neut # (Auto) 4.68 10^3/uL (1.8-7.7) 09/17/22 04:42 Lymph # (Auto) 1.4 10^3/uL (0.8-4.8) 09/17/22 04:42 [facility] # (Auto) 0.9 10^3/uL (0.2-0.9) 09/17/22 04:42 Eos # (Auto) 0.2 10^3/uL (0.0-0.8) 09/17/22 04:42 Baso # (Auto) 0.0 10^3/uL (0.0-0.1) 09/17/22 04:42 Nucleated RBC % (auto) 0 % 09/17/22 04:42 Nucleated RBCs # 0.0 /100WBC 09/17/22 04:42 Sodium 136 mmol/L (136-145) 09/17/22 04:42 Potassium 3.7 mmol/L (3.5-5.1) 09/17/22 04:42 Chloride 100 mmol/L (98-107) 09/17/22 04:42 Carbon Dioxide 25 mmol/L (22-29) 09/17/22 04:42 Anion Gap 14.7 (5-19) 09/17/22 04:42 BUN 8 mg/dL (6-20) 09/17/22 04:42 Creatinine 0.7 mg/dL (0.7-1.2) 09/17/22 04:42 GFR Calculation 118.9 mL/min (90-130) 09/17/22 04:42 Glucose 97 mg/dL (65-115) 09/17/22 04:42 Calculated Osmolality 280 mOsm/kg (285-295) L 09/17/22 04:42 Lactic Acid 3.0 mmol/L (0.5-2.2) H 09/14/22 06:58 Lactic Acid (Sepsis) 3.2 mmol/L (0.5-2.2) H 09/14/22 10:06 Lactate 1.5 mmol/L (0.5-2.2) 09/15/22 14:12 Calcium 8.8 mg/dL (8.5-10.5) 09/17/22 04:42 Magnesium 1.9 mg/dL (1.7-2.3) 09/17/22 04:42 Total Bilirubin 0.3 mg/dL (0.15-1.2) 09/14/22 07:23 AST 30 U/L (0-40) 09/14/22 07:23 ALT 49 U/L (0-41) H 09/14/22 07:23 Alkaline Phosphatase 134 U/L (40-130) H 09/14/22 07:23 Troponin T Baseline 6 ng/L (0-15) 09/14/22 07:23 Troponin T 120 Minute 6.00 ng/L (0-15) 09/14/22 10:06 Delta Troponin T 0 ABS# (0-10) 09/14/22 10:06 Troponin T Hi Sens 6Hr 6.00 ng/L (0-15) 09/14/22 13:18 Troponin T Hi Sens 6Hr Delta 0 ng/L (0-12) 09/14/22 13:18 Total Protein 7.3 g/dL (6.6-8.7) 09/14/22 07:23 Albumin 4.0 g/dL (3.5-5.2) 09/14/22 07: Globulin 3.3 g/dL (1.3-4.6) 09/14/22 07: Lipase 6 U/L (13-60) L 09/14/22 07:23 Urine Color Yellow (Yellow) 09/14/22 08:17 Urine Appearance Clear (CLEAR) 09/14/22 08:17 Urine pH 9 (5-7) H 09/14/22 08:17 Ur Specific [place] 1.015 (1.005-1.030) 09/14/22 08:17 Urine Protein Neg (Negative) 09/14/22 08:17 Urine Glucose (UA) Norm (Normal) 09/14/22 08:17 Urine Ketones Negative (Negative) 09/14/22 08:17 Urine Blood Neg (Negative) 09/14/22 08:17 Urine Nitrate Negative (Negative) 09/14/22 08:17 Urine Bilirubin Neg (Negative) 09/14/22 08:17 Prot Sulfosalicylic Acd Negative (Negative) 09/14/22 08:17 Urine Urobilinogen Norm mg/dL (Negative) 09/14/22 08:17 Ur Leukocyte Esterase Negative (Negative) 09/14/22 08:17 Procedures Performed None Vitals Last Vital Signs Temp 97.5 F L 09/17/22 16:00 Pulse 95 09/17/22 16:00 Resp 18 09/17/22 16:00 BP 108/64 09/17/22 16:00 Pulse Ox 93 09/17/22 16:00 O2 Del Method Room Air 09/17/22 16:00 Discharge Plan Discharge Patient Disposition: Home Condition: Stable Prescriptions: No Action No Known Home Medications Discharge Orders: Discharge Order (Routine); Ordered 09/17/22 Ordered By: Morris Boswell Referrals: Ranulfo Bergeron DO [Primary Care Provider] - 4-7 days Discharge Diet: Advance as tolerated Discharge Activity: Resume usual activity Patient Instructions: Opioid Safety Discharge Attestations Time Spent in Discharge Care*: less than 30 min Quality Metrics Clinical Quality Measures [ No reported AMI, CVA or VTE this stay] Coding Level of Care Code Acute Code for Chg Fwd Diagnoses Small bowel obstruction K56.609 Recurrent incisional hernia K43.2
== END 2022-09-17 17:45 | disposition home or self-care (01) | DRG 390 ==
LOC: ER 09:27 → MEDSURG 12:12
PROVIDERS: Admitting Provider Surgery; Emergency Provider Family Medicine; PCP Family Medicine; Visit Provider Surgery
DX: K56.600 Partial intestinal obstruction, unspecified as to cause (principal); K43.2 Incisional hernia without obstruction or gangrene; F17.200 Nicotine dependence, unspecified, uncomplicated
CPT/HCPCS: 36415; 71045; 74176; 80048; 80053; 81003; 83605; 83690; 83735; 84484; 85025; 92523; 92610; 93005; 96374; 96375; 99285; C9113; J1170; J2060; J2270; J2405; J7030

== ENCOUNTER 2022-12-17 05:52 | Emergency (ER) | payer MEDICAID, SELFPAY ==
[2022-12-17 05:53] VITALS: BP 111/79; PULSE 83; RESP 20; TEMP 36.5; O2SAT 93; BMI 36.0
--- NOTE | 2022-12-17 05:57 | ED_ITS ---
HPI - Abdominal Pain General: Chief Complaint: Abdominal Pain Stated Complaint: abd pain Time Seen by Provider: 12/17/22 05:54 Source: patient Mode of arrival: ambulatory History of Present Illness: 52-year-old male presents emergency room complaining of abdominal pain. No vomiting or diarrhea. Patient has a large abdominal wall hernia from previous surgeries he has been referred to [place] to hernia clinic but has not been there yet he did recently have a bowel obstruction not related to the hernia. No hematochezia or melena no dysuria urgency or frequency or hematuria MD elicited complaint: abdominal pain Onset (ago): hour(s) Pain Consistency: constant Location: Diffuse Severity: severe Quality: cramping Radiation: none Exacerbating factors: nothing Relieving factors: nothing Associated Symptoms: Reports bloating, GI cramping, nausea and poor appetite; Denies anorexia, belching, change in bowel habits, change in stool character, chills, coffee ground emesis, constipation, diarrhea, dyspepsia, dysuria, excessive flatus, fever(s), heartburn, hematochezia, hematuria, hematemesis, fecal incontinence, loose stools, melena, syncope and vomiting Review of Systems Const: Denies: fever(s) or chills Card: Denies: chest pain, palpitations, edema or syncope Resp: Denies: dyspnea, productive cough or non-productive cough GI: Reports: abdominal pain, nausea, bloating and GI cramping; Denies: vomiting, hematemesis, coffee ground emesis, heartburn, diarrhea, constipation, belching, excessive flatus, fecal incontinence, change in bowel habits, change in stool character, hematochezia or melena : Denies: dysuria, urinary frequency, urinary urgency or hematuria Musc: Denies: neck pain or back pain Skin/Breast: Denies: rash or pruritus PFSH ED PFSH: Medical History Small bowel obstruction Strain of lumbar region Surgical History History of colonoscopy 2019 History of colostomy reversal 2019 History of incisional hernia repair History of intestinal surgery 2014 Family History Denies family history of Diabetes CAD (coronary artery disease) Clotting disorder Dementia Hyperlipidemia Psychiatric illness Chronic kidney disease (CKD) Anesthesia complication Bleeding disorder Lung disease Cancer Hypertension Stroke Social History Smoking and tobacco status: current every day smoker cigarettes Packs smoked per day: 0.5 Alcohol intake: current Alcohol intake frequency: 0-2 Drinks per Day Alcohol type: beer Substance/Drug Use: current Substance/Drug use frequency: few times a week Lives independently: Yes Special ozzie needs: No Agree to transfusion: Yes Physical Exam Const: GENERAL APPEARANCE: cooperative ORIENTATION/CONSCIOUSNESS: Yes awake, Yes oriented to person, Yes oriented to place and Yes oriented to time HENMT: COMMON NORMALS: normocephalic, atraumatic and hearing grossly normal bilaterally HEAD & SCALP: normocephalic and atraumatic Resp: COMMON NORMALS: normal respiratory effort, No retractions, No use of accessory muscles and clear to auscultation bilaterally AUSCULTATION: clear to auscultation bilaterally Cardio: COMMON NORMALS: regular rate, regular rhythm and No murmurs present (Cardio) RATE: regular rate RHYTHM: regular rhythm GI: INSPECTION: Yes abdominal distension and Yes scar AUSCULTATION: Yes Hypoactive bowel sounds present PALPATION: Yes Tenderness to palpation present (GI) PERCUSSION: tympanic to percussion Extremity: COMMON NORMALS: normal to inspection, capillary refill normal, no clubbing, cyanosis or edema, no calf tenderness and no pedal edema Neuro: SENSORIUM/ORIENTATION: Yes oriented to person, Yes oriented to place and Yes oriented to time Skin: COMMON NORMALS: no rashes or lesions noted GENERAL SKIN EXAM: no rashes or lesions noted Course Vital Signs: Vital signs: Vital Signs Temperature 97.7 F 12/17/22 05:53 Pulse Rate 85 12/17/22 07:38 Respiratory Rate 20 H 12/17/22 07:38 Blood Pressure 157/55 12/17/22 07:38 Pulse Oximetry 94 12/17/22 07:38 Oxygen Delivery Me thod Nasal Cannula 12/17/22 06:47 Oxygen Flow Rate 2 12/17/22 06:47 MDM - Abdominal Pain Medical Decision Making CT negative for acute obstruction large herniation present unchanged. Labs reviewed no significant finding the only abnormality is his lipase is slightly low the rest are all within normal ranges. Patient does have some musculoskeletal back pain seems to be playing a bit overall and this will treat for that. Otherwise no other significant findings no emergent findings on the CT exam or lab. Will discharge home with medications for his back follow-up with his primary care doctor return if has further problems. Medical Records I reviewed the patient's medical records. Lab Data I reviewed the patient's lab results. 12/17/22 06:02 12/17/22 06:02 Labs/Radiology: Radiology Impressions Abdomen/Pelvis CT 12/17/22 06:05 IMPRESSION: 1. Large epigastric and supraumbilical abdominal wall hernias. 2. Previous sigmoid colonic anastomosis. 3. Distended urinary bladder (500 mL). Laboratory Results WBC 7.23 10^3/uL (3.29-11.43) 12/17/22 06:02 RBC 5.15 10^6/uL (3.85-5.65) 12/17/22 06:02 Hgb 16.10 g/dL (11.27-16.99) 12/17/22 06:02 Hct 48.0 % (37-53) 12/17/22 06:02 MCV 93.2 fl (82-101) 12/17/22 06:02 MCH 31.3 pg (27-33) 12/17/22 06:02 MCHC 33.5 g/dL (30-55) 12/17/22 06:02 RDW 13.0 % (12.1-15.1) 12/17/22 06:02 Plt Count 254 10^3/cmm (157-399) 12/17/22 06:02 MPV 9.2 fL (7.4-10.4) 12/17/22 06:02 Neut % (Auto) 67.2 % 12/17/22 06:02 Lymph % (Auto) 19.4 % 12/17/22 06:02 [place] % (Auto) 9.4 % 12/17/22 06:02 Eos % (Auto) 2.6 % 12/17/22 06:02 Baso % (Auto) 0.8 % 12/17/22 06:02 Neut # (Auto) 4.86 10^3/uL (1.8-7.7) 12/17/22 06:02 Lymph # (Auto) 1.4 10^3/uL (0.8-4.8) 12/17/22 06:02 [place] # (Auto) 0.7 10^3/uL (0.2-0.9) 12/17/22 06:02 Eos # (Auto) 0.2 10^3/uL (0.0-0.8) 12/17/22 06:02 Baso # (Auto) 0.1 10^3/uL (0.0-0.1) 12/17/22 06:02 Nucleated RBC % (auto) 0 % 12/17/22 06:02 Nucleated RBCs # 0.0 /100WBC 12/17/22 06:02 Sodium 142 mmol/L (136-145) 12/17/22 06:02 Potassium 4.0 mmol/L (3.5-5.1) 12/17/22 06:02 Chloride 106 mmol/L (98-107) 12/17/22 06:02 Carbon Dioxide 28 mmol/L (22-29) 12/17/22 06:02 Anion Gap 12.0 (5-19) 12/17/22 06:02 BUN 9 mg/dL (6-20) 12/17/22 06:02 Creatinine 0.7 mg/dL (0.7-1.2) 12/17/22 06:02 GFR Calculation 118.4 mL/min (90-130) 12/17/22 06:02 Glucose 98 mg/dL (65-115) 12/17/22 06:02 Calculated Osmolality 293 mOsm/kg (285-295) 12/17/22 06:02 Lactic Acid 1.7 mmol/L (0.5-2.2) 12/17/22 06:02 Calcium 8.8 mg/dL (8.5-10.5) 12/17/22 06:02 Total Bilirubin 0.2 mg/dL (0.15-1.2) 12/17/22 06:02 AST 18 U/L (0-40) 12/17/22 06:02 ALT 35 U/L (0-41) 12/17/22 06:02 Alkaline Phosphatase 126 U/L (40-130) 12/17/22 06:02 Total Protein 6.9 g/dL (6.6-8.7) 12/17/22 06:02 Albumin 4.1 g/dL (3.5-5.2) 12/17/22 06:02 Globulin 2.8 g/dL (1.3-4.6) 12/17/22 06:02 Lipase 6 U/L (13-60) L 12/17/22 06:02 Urine Color Yellow (Yellow) 12/17/22 07:30 Urine Appearance Clear (CLEAR) 12/17/22 07:30 Urine pH 7 (5-7) 12/17/22 07:30 Ur Specific [place] 1.005 (1.005-1.030) 12/17/22 07:30 Urine Protein Neg (Negative) 12/17/22 07:30 Urine Glucose (UA) Norm (Normal) 12/17/22 07:30 Urine Ketones Negative (Negative) 12/17/22 07:30 Urine Blood Neg (Negative) 12/17/22 07:30 Urine Nitrate Negative (Negative) 12/17/22 07:30 Urine Bilirubin Neg (Negative) 12/17/22 07:30 Urine Urobilinogen Norm mg/dL (Negative) 12/17/22 07:30 Ur Leukocyte Esterase Negative (Negative) 12/17/22 07:30 Discharge Plan Discharge Patient Disposition: Home Clinical Impression: Hernia of abdominal wall, Back pain Condition: Stable Prescriptions: New tizanidine 4 mg tablet 4 mg PO Q6H PRN (Reason: muscle spasticity) Qty: 20 0RF Rx Instructions: do not exceed 3 doses per 24 hrs prednisone 20 mg tablet 20 mg PO TID Qty: 15 0RF Rx Instructions: 1 p.o. 3 times daily x3 days, 1 p.o. twice daily x2 days, 1 p.o. daily x2 days diclofenac sodium 75 mg tablet,delayed release (DR/EC) 75 mg PO Q12H PRN (Reason: pain) Qty: 20 0RF Discharge Orders: Discharge ED (Routine); Ordered 12/17/22 Ordered By: Spencer Negrete Referrals: Henok Jenkins MD [Primary Care Provider] - Discharge Diet: Usual diet Discharge Activity: Increase activity as tolerated Patient Instructions: Back Pain (ED), Opioid Safety, Pain Management Activity Restrictions/Additional Instructions: If symptoms persist or recur you can follow-up with Dr. Warren or with the emergency room. Coding Level of Care Code ED [employer] for [place] [facility]
--- NOTE | 2022-12-17 06:05 | CTR_ITS ---
PROCEDURE INFORMATION: Exam: CT Abdomen And Pelvis With Contrast Exam date and time: 12/17/2022 7:08 AM Age: 52 years old Clinical indication: Abdominal pain; Generalized; Prior surgery; Surgery date: 6+ months; Surgery type: Hernia, clostomy/reversal. ; Additional info: Abd pain TECHNIQUE: Imaging protocol: Computed tomography of the abdomen and pelvis with contrast. Radiation optimization: All CT scans at this facility use at least one of these dose optimization techniques: automated exposure control; mA and/or kV adjustment per patient size (includes targeted exams where dose is matched to clinical indication); or iterative reconstruction. Contrast material: OMNI 350; Contrast volume: 100 ml; Contrast route: INTRAVENOUS (IV); REPORTING DATA: Count of CT and Cardiac NM exams in prior 12 months: This patient has received [address] and 0 known cardiac nuclear medicine studies in the 12 months prior to the current study. COMPARISON: CT abdomen pelvis wo con [id number] 09/14/2022 7:01 AM RADIATION DOSE METRICS: Total DLP (mGy-cm): 1177.2 FINDINGS: Lungs: Bibasilar mild pulmonary subsegmental atelectasis is present. Diaphragm: The right hemidiaphragm is moderately elevated. Liver: Normal. No mass. Gallbladder and bile ducts: Normal. No calcified stones. No ductal dilation. Pancreas: Normal. No ductal dilation. Spleen: Normal. No splenomegaly. Adrenal glands: Normal. No mass. Kidneys and ureters: Normal. No hydronephrosis. Stomach and bowel: Previous sigmoid colonic anastomosis. Appendix: The vermiform appendix is normal. Intraperitoneal space: No free air. No significant fluid collection. Vasculature: Unremarkable. No abdominal aortic aneurysm. Lymph nodes: No enlarged lymph nodes. Urinary bladder: Distended urinary bladder (14.2 x 8.8 x 8.0 cm). Reproductive: Unremarkable as visualized. Bones/joints: Unremarkable. No acute fracture. Soft tissues: Large epigastric linea alba hernia measuring approximately 17.6 x 6.0 x 6.5 cm, fascial defect approximately 8.2 x 4.4 cm, containing transverse colon without obstruction/strangulation/gangrene. Immediately supraumbilical large linea alba hernia measuring approximately 21.9 x 6.9 x 7.4 cm, fascial defect approximately 9.9 x 5.8 cm, containing small bowel without obstruction/strangulation/gangrene. A small left inguinal hernia is present containing only intra-abdominal fat. CT/CT abdomen pelvis w con* [id number] IMPRESSION: 1. Large epigastric and supraumbilical abdominal wall hernias. 2. Previous sigmoid colonic anastomosis. 3. Distended urinary bladder (500 mL).
[2022-12-17 06:10] VITALS: BP 142/96; PULSE 80; RESP 18; O2SAT 91
[2022-12-17 06:12] LABS: Basophils # 0.1 10^3/uL (0.0-0.1); Basophils % 0.8 %; Eosinophils # 0.2 10^3/uL (0.0-0.8); Eosinophils % 2.6 %; Lymphocytes # 1.4 10^3/uL (0.8-4.8); Lymphocytes % 19.4 %; Mean Corpuscular HGB Conc 33.5 g/dL (30-55); Mean Corpuscular Hemoglobin 31.3 pg (27-33); Mean Corpuscular Volume 93.2 fl (82-101); Mean Platelet Volume 9.2 fL (7.4-10.4); Monocytes # 0.7 10^3/uL (0.2-0.9); Monocytes % 9.4 %; Neutrophils # 4.86 10^3/uL (1.8-7.7); Neutrophils % 67.2 %; Nucleated Red Blood Cells % 0 %; Platelet Count 254 10^3/cmm (157-399); Red Blood Count 5.15 10^6/uL (3.85-5.65); White Blood Count 7.23 10^3/uL (3.29-11.43)
--- NOTE | 2022-12-17 06:12 | PC.NURSE ---
Addendum entered by Deidra Arora RN 12/17/22 06:12: pt currently 93% on 2L Original Note: pt sat 87-88% room air, applied 2L o2 nasal cannula
[2022-12-17 06:17] VITALS: RESP 27; O2SAT 92
[2022-12-17] MEDS: morphine 4 mg/mL SDV 1 mL IVP (06:17)
[2022-12-17] MEDS: ondansetron 2 mg/ML SDV 2 mL 4 MG IVP (06:17)
[2022-12-17] MEDS: sodium chloride 0.9% 1,000 ML 999 ML IV (06:18)
[2022-12-17 06:39] LABS: Alanine Aminotransferase 35 U/L (0-41); Albumin Level 4.1 g/dL (3.5-5.2); Alkaline Phosphatase 126 U/L (40-130); Aspartate Amino Transferase 18 U/L (0-40); Blood Urea Nitrogen 9 mg/dL (6-20); Calcium 8.8 mg/dL (8.5-10.5); Carbon Dioxide 28 mmol/L (22-29); Chloride 106 mmol/L (98-107); Globulin 2.8 g/dL (1.3-4.6); Glomerular Filtration Rate 118.4 mL/min (90-130); Glucose 98 mg/dL (65-115); Lipase 6 U/L (13-60); Osmolality Calculated 293 mOsm/kg (285-295); Sodium 142 mmol/L (136-145); Total Bilirubin 0.2 mg/dL (0.15-1.2); Total Protein 6.9 g/dL (6.6-8.7)
[2022-12-17 06:47] VITALS: PULSE 91; RESP 22; O2SAT 93
--- NOTE | 2022-12-17 06:48 | PC.NURSE ---
pt appears to be resting, in no acute distress at this time. breathing even and unlabored. at bedside.
[2022-12-17 06:57] LABS: Lactic Sepsis W/Reflex 1.7 mmol/L (0.5-2.2)
[2022-12-17] MEDS: iohexol 350 mg/mL 500 mL Btl (per mL) IV (07:16)
[2022-12-17 07:38] VITALS: BP 157/55; PULSE 85; RESP 20; O2SAT 94
[2022-12-17 07:40] LABS: Add Urine Microscopic? NO
[2022-12-17 07:41] LABS: Charge for UA Resulting for Rev
[2022-12-17 07:45] LABS: Bilirubin Urine Neg (Negative); Blood Urine Neg (Negative); Glucose Urine UA Norm (Normal); Ketones Urine Negative (Negative); Leukocyte Esterase Urine Negative (Negative); Nitrate Urine Negative (Negative); Protein Urine Neg (Negative); Specific Gravity, Urine 1.005 (1.005-1.030); Urine Appearance Clear (CLEAR); Urine Color Yellow (Yellow); Urobilinogen Urine Norm (Negative); pH Urine 7 (5-7)
== END 2022-12-17 09:12 | disposition home or self-care (01) ==
PROVIDERS: Emergency Provider Family Medicine; PCP Family Medicine
DX: K43.9 Ventral hernia without obstruction or gangrene (principal); M54.9 Dorsalgia, unspecified; F17.210 Nicotine dependence, cigarettes, uncomplicated
CPT/HCPCS: 51798; 74177; 80053; 81003; 83605; 83690; 85025; 87040; 96374; 96375; 99285; J2270; J2405; J7030; Q9967